=== PATIENT | female | born 1955 | race Caucasian/White ===

== ENCOUNTER 2017-06-13 20:34 | Emergency (ER) | payer SELFPAY ==
[~2017-06-13 20:34] MED LIST: BENZ1TAB PO; BUPR100CR PO; DEPA250T2 PO; RISP1TAB54 PO; Z.0.NO CURRENT MEDS
[2017-06-13 20:40] VITALS: BP 139/62; PULSE 95; RESP 16; TEMP 98.3; O2SAT 98
== END 2017-06-13 21:19 | disposition left against medical advice (07) ==
LOC: NED 20:34
DX: Z53.21 Procedure and treatment not carried out due to patient leaving prior to being seen by health care provider (principal)
CPT/HCPCS: 99281

== ENCOUNTER 2017-06-14 02:14 | Emergency (ER) | payer SELFPAY ==
[~2017-06-14] VITALS: Ht 167.6 cm; Wt 50.0 kg
== END 2017-06-14 08:17 | disposition left against medical advice (07) ==
LOC: NED 02:14
DX: R45.851 Suicidal ideations (principal); Z53.21 Procedure and treatment not carried out due to patient leaving prior to being seen by health care provider
CPT/HCPCS: 99281

== ENCOUNTER 2017-06-17 17:23 | Emergency (ER) | payer SELFPAY ==
[~2017-06-17] VITALS: Ht 167.6 cm; Wt 52.0 kg
[2017-06-17 17:34] VITALS: BP 115/56; PULSE 104; RESP 16; TEMP 98.6; O2SAT 99
[2017-06-17] MEDS ORDERED: ALBUAER3 INH (20:52)
--- NOTE | 2017-06-17 20:57 | PD ---
HPI Chief Complaint: Musculoskeletal Complaint Time Seen by Provider: 20:47 Travel History International Travel<30 days: No Contact w/Intl Traveler<30days: No Traveled to known affect area: No History of Present Illness HPI 61-year-old white female presents emergency department with complaints of an abrasion to the left foot which occurred earlier this week from a piece of wire scratched her skin when she was walking in flip-flops. The patient states that she has not had a tetanus shot in over 5 years. She has noticed some swelling in her forefoot and second toe. She denies any fever chills. No numbness, tingling or weakness. She denies any drainage. PFSH Past Medical History Bipolar Disorder: Yes Depression: Yes Cardiac Catheterization: Yes Cardiovascular Problems: Yes Coronary Artery Disease: Yes Diminished Hearing: Yes (bilateral listening device implant) Psychiatric: Yes Influenza Vaccination: Yes Menopausal: Yes : 5 Para: 4 Miscarriage: 1 Past Surgical History Cardiac Surgery: Yes Coronary Stent: Yes Gynecologic Surgery: Yes (HYSTERECTOMY) Hysterectomy: Yes Other Surgery: Yes (rectual surgery) Social History Alcohol Use: Yes (SOCIALY) Tobacco Use: Yes (1-2 PACKS DAILY OF CIGARETTES) Substance Use: No Allergies-Medications (Allergen,Severity, Reaction): Coded Allergies: citalopram (Unverified Allergy, Severe, 06/14/17) LEXAPRO paroxetine (Unverified Allergy, Severe, 06/14/17) sertraline (Unverified Allergy, Severe, 06/14/17) aspirin (Unverified Allergy, Mild, 06/14/17) Reported Meds & Prescriptions Reported Meds & Active Scripts Active Review of Systems Except as stated in HPI: all other systems reviewed are Neg Physical Exam Narrative GENERAL: This is a well-nourished, well-developed patient, in no apparent distress. SKIN: No rashes, ecchymoses or lesions. Warm and dry. HEAD: Atraumatic. Normocephalic. EYES: PERRL, EOMI, no discharge or injection. No scleral icterus. EARS: Clear NOSE: Nasal turbinates appear normal. THROAT: Mucosa pink and moist. Airway patent. NECK: Trachea midline. supple, moves head freely. LUNGS: Clear to auscultation. CV: Regular in rhythm. ABDOMEN: Soft nontender. EXT: No clubbing cyanosis or edema.. Examination of the left foot reveals only trace swelling to the dorsum. There is a superficial abrasion. There is no laceration or puncture. She has a crack in the skin on the base of the second toe from tinea pedis and walking in flip-flops. She has intact sensation with good distal pulses. I see no signs of any foreign body, nerve or vascular injury.. Data Data Last Documented VS Vital Signs Date Time Temp Pulse Resp B/P (MAP) Pulse Ox O2 Delivery O2 Flow Rate FiO2 06/17/17 17:34 98.6 104 16 115/56 (75) 99 Orders Orders Tetanus/Diphtheria Tox Adult (Tetanus/Di (06/17/17 21:00) Sulfamet-Trimeth Ds 800-160 Mg (Bactrim (06/17/17 21:00) MDM Medical Decision Making Medical Screen Exam Complete: Yes Emergency Medical Condition: Yes Medical Record Reviewed: Yes Differential Diagnosis MDM: High Differential diagnoses: Fracture, sprain, strain, dislocation, contusion, neurovascular injury, abrasion, infection Narrative Course Patient's foot reveals only a superficial abrasion to the dorsum and a crack in the skin from tinea pedis the second toe. The patient is concerned that she may be getting a wound infection. I have explained to her that this is not infected but the patient is insistent. I have agreed to give her a short course of Bactrim DS. She appears to be homeless on the streets and walks in flip-flops everywhere. Tetanus status updated. This is left foot abrasion, tinea pedis Diagnosis Primary Impression: Left foot abrasion Additional Impression: Tinea pedis Patient Instructions: General Instructions Additional Instructions: Rest. Elevation. Keep your feet clean and dry. Wash with soap, water and apply Lamisil AT twice daily. Bactrim DS. Recheck with a family practice physician or a clinic in 1 week. Return to the ER for emergencies. Med/Other Pt SpecificInfo: Prescription(s) given, Wound Care Disposition: 01 DISCHARGE HOME Condition: Stable Scooter Steward Jun 17, 2017 20:57
[2017-06-17] MEDS ORDERED: BACT800T5 PO (20:58)
[2017-06-17] MEDS ORDERED: SULFAMETHOXAZOLE-TRIMETHOPRIM DS 800-160 MG TAB PO ONE (21:00)
[2017-06-17] MEDS ORDERED: TETANUS/DIPHTHERIA TOXOID ADULT 0.5 ML VIAL IM ONE (21:00)
== END 2017-06-17 21:13 | disposition home or self-care (01) ==
LOC: NEPD 17:23
DX: S90.812A Abrasion, left foot, initial encounter (principal); B35.3 Tinea pedis; I25.10 Atherosclerotic heart disease of native coronary artery without angina pectoris; F31.9 Bipolar disorder, unspecified; F17.210 Nicotine dependence, cigarettes, uncomplicated; W22.8XXA Striking against or struck by other objects, initial encounter; Z23 Encounter for immunization; Z59.0 Homelessness; Z95.5 Presence of coronary angioplasty implant and graft; Z88.8 Allergy status to other drugs, medicaments and biological substances
CPT/HCPCS: 90471; 90714

== ENCOUNTER 2017-06-24 03:14 | Emergency (ER) | payer SELFPAY ==
[~2017-06-24] VITALS: Ht 167.6 cm; Wt 53.0 kg
[~2017-06-24 03:14] MED LIST changes: +ALBUAER3 INH; +BACT800T5 PO; -BENZ1TAB PO; -BUPR100CR PO; -DEPA250T2 PO; -RISP1TAB54 PO; -Z.0.NO CURRENT MEDS
[2017-06-24 03:17] VITALS: BP 120/53; PULSE 98; RESP 16; TEMP 97.6; O2SAT 98
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
[2017-06-24] MEDS ORDERED: diphenhydrAMINE HCL 50 MG/ML VIAL IM ONE (04:00)
== END 2017-06-24 05:30 | disposition home or self-care (01) ==
LOC: NEPD 03:14
DX: L29.9 Pruritus, unspecified (principal); F31.9 Bipolar disorder, unspecified; I25.811 Atherosclerosis of native coronary artery of transplanted heart without angina pectoris; J45.909 Unspecified asthma, uncomplicated; F17.210 Nicotine dependence, cigarettes, uncomplicated; Z95.5 Presence of coronary angioplasty implant and graft; Z59.0 Homelessness
CPT/HCPCS: 96372; 99283; J1200

== ENCOUNTER 2017-06-30 13:07 | Emergency (ER) | payer SELFPAY ==
[~2017-06-30] VITALS: Ht 167.6 cm; Wt 53.0 kg
[2017-06-30 13:15] VITALS: BP 162/69; PULSE 87; RESP 17; TEMP 98.3; O2SAT 98
[2017-06-30] MEDS ORDERED: diphenhydrAMINE HCL 25 MG CAP PO ONE (15:30)
--- NOTE | 2017-06-30 15:33 | PD ---
HPI Chief Complaint: Skin Problem Time Seen by Provider: 15:07 Travel History International Travel<30 days: No Contact w/Intl Traveler<30days: No Traveled to known affect area: No History of Present Illness HPI 61-year-old woman presents emerged from complaining of feeling itchy all over. States she drank a drink that tasted funny and then she has developed itching. She is worried because she had an anaphylactic reaction when she was 17. She is very bizarre. She came by EMS. No hives. No vomiting. No shortness of breath. No other complaints. PFSH Past Medical History Bipolar Disorder: Yes Depression: Yes Cardiac Catheterization: Yes Cardiovascular Problems: Yes (heart transplant 2017) Coronary Artery Disease: Yes Diminished Hearing: Yes (bilateral listening device implant) Psychiatric: Yes Respiratory: Yes (asthma) Menopausal: Yes : 5 Para: 4 Miscarriage: 1 Past Surgical History Cardiac Surgery: Yes Coronary Stent: Yes Gynecologic Surgery: Yes (HYSTERECTOMY) Hysterectomy: Yes Other Surgery: Yes (rectual surgery) Social History Alcohol Use: Yes (SOCIALY) Tobacco Use: Yes (1-2 PACKS DAILY OF CIGARETTES) Substance Use: No Allergies-Medications (Allergen,Severity, Reaction): Coded Allergies: citalopram (Unverified Allergy, Severe, 06/14/17) LEXAPRO paroxetine (Unverified Allergy, Severe, 06/14/17) sertraline (Unverified Allergy, Severe, 06/14/17) aspirin (Unverified Allergy, Mild, 06/14/17) Reported Meds & Prescriptions Reported Meds & Active Scripts Active Reported Proair Hfa 8.5 GM Inh (Albuterol Sulfate) 90 Mcg/Act Aer 2 Puff INH Q4-6H PRN 108 mcg/actuation Review of Systems Except as stated in HPI: all other systems reviewed are Neg Physical Exam Narrative GENERAL: Well-appearing 61-year-old woman, no acute distress per SKIN: Warm and dry. Also secondary excoriations. No hives or other primary skin lesions CARDIOVASCULAR: Warm and well perfused. RESPIRATORY: Normal rate and effort. MUSCULOSKELETAL: Decreased muscle bulk. No deformities. NEUROLOGICAL: Awake and alert. No gross deficits. Data Data Last Documented VS Vital Signs Date Time Temp Pulse Resp B/P (MAP) Pulse Ox O2 Delivery O2 Flow Rate FiO2 06/30/17 13:15 98.3 87 17 162/69 (100) 98 Orders Orders Diphenhydramine (Benadryl) (06/30/17 15:30) [facility] Medical Decision Making Medical Screen Exam Complete: Yes Emergency Medical Condition: Yes Differential Diagnosis Allergic reaction, psychosomatic pruritus, other Narrative Course Medical decision making appears a 61-year-old woman, presents to the ED with itching. She looks well. She is a lot of scratches but no hives or other evidence allergic reaction. Lungs are clear. Recommend supportive treatment. Diagnosis Primary Impression: Itching Additional Instructions: Drink plenty of fluids stay well-hydrated. Use [id number] Benadryl as needed for itching. Disposition: 01 DISCHARGE HOME Condition: Stable Rakesh Cunningham MD Jun 30, 2017 15:33
== END 2017-06-30 15:44 | disposition home or self-care (01) ==
LOC: NEPD 13:07
DX: L29.9 Pruritus, unspecified (principal); F31.9 Bipolar disorder, unspecified; J45.909 Unspecified asthma, uncomplicated; I25.811 Atherosclerosis of native coronary artery of transplanted heart without angina pectoris; F17.210 Nicotine dependence, cigarettes, uncomplicated
CPT/HCPCS: 99282

== ENCOUNTER 2017-07-04 20:52 | Emergency (ER) | payer OTHER ==
[~2017-07-04] VITALS: Ht 165.1 cm; Wt 60.0 kg
[~2017-07-04 20:52] MED LIST changes: -BACT800T5 PO
[2017-07-04 21:00] VITALS: BP 139/68; PULSE 87; RESP 12; TEMP 98.6; O2SAT 98
--- NOTE | 2017-07-04 21:18 | PD ---
HPI Chief Complaint: Suicide Ideation/Attempt Time Seen by Provider: 21:06 Travel History International Travel<30 days: No Contact w/Intl Traveler<30days: No Traveled to known affect area: No History of Present Illness HPI 61-year-old female that presents to the ED for evaluation of suicidal ideation. Patient apparently told police that she wanted to kill herself by going into traffic. She was brought here for evaluation of this. Patient has been here at least 3 times in the past week. She has been here for multiple complaints. She does have a history of adjustment disorder and appears to be also homeless. Is hard to get a history from her as she is very bizarre on her speech. She speaks really fast and does not like to repeat herself. She gets very upset whenever a question gets asked multiple times. She has a history of substance abuse. She denies any homicidal ideation. She states having a history of depression and she states that she is to be on medications for her but she is not on them. She states that she was also told she might have diabetes and is having issues with her "Medicaid ". She denies any other medical issues at this time. She states that she has a history of hypoglycemia as well as asthma and anemia. Multiple allergies to different medications. Has been here before for psychiatric evaluation. Again history is limited as patient does appear to be somewhat bizarre in behavior at this time. PFSH Past Medical History Bipolar Disorder: Yes Depression: Yes Cardiac Catheterization: Yes Cardiovascular Problems: Yes (heart transplant 2016) Coronary Artery Disease: Yes Diminished Hearing: Yes (bilateral listening device implant) Psychiatric: Yes Respiratory: Yes (ASTHMA) ?: Not Menopausal: Yes : 5 Para: 4 Miscarriage: 1 Past Surgical History Cardiac Surgery: Yes Coronary Stent: Yes Gynecologic Surgery: Yes (HYSTERECTOMY) Hysterectomy: Yes Other Surgery: Yes (rectual surgery) Social History Alcohol Use: Yes (SOCIALY) Tobacco Use: Yes (1-2 PACKS DAILY OF CIGARETTES) Substance Use: No Allergies-Medications (Allergen,Severity, Reaction): Coded Allergies: citalopram (Unverified Allergy, Severe, 06/14/17) LEXAPRO paroxetine (Unverified Allergy, Severe, 06/14/17) sertraline (Unverified Allergy, Severe, 06/14/17) aspirin (Unverified Allergy, Mild, 06/14/17) Reported Meds & Prescriptions Reported Meds & Active Scripts Active Reported Proair Hfa 8.5 GM Inh (Albuterol Sulfate) 90 Mcg/Act Aer 2 Puff INH Q4-6H PRN 108 mcg/actuation Review of Systems ROS Limitations: Poor Historian Except as stated in HPI: all other systems reviewed are Neg Physical Exam Exam Limitations: Poor Historian Narrative GENERAL: SKIN: Warm and dry. HEAD: Atraumatic. Normocephalic. EYES: Pupils equal and round. No scleral icterus. No injection or drainage. ENT: No nasal bleeding or discharge. Mucous membranes pink and moist. Tongue is midline. No uvula deviation. NECK: Trachea midline. No JVD. CARDIOVASCULAR: Regular rate and rhythm. No murmurs, S3, S4. RESPIRATORY: No accessory muscle use. Clear to auscultation. Breath sounds equal bilaterally. GASTROINTESTINAL: Abdomen soft, non-tender, nondistended. Hepatic and splenic margins not palpable. MUSCULOSKELETAL: Extremities without clubbing, cyanosis, or edema. No obvious deformities. Full range of motion of the upper and lower extremities bilaterally. 2+ pulses bilaterally. NEUROLOGICAL: Awake and alert. No obvious cranial nerve deficits. Motor grossly within normal limits. Five out of 5 muscle strength in the arms and legs. Normal speech. PSYCHIATRIC: Appropriate mood and affect; insight and judgment questionable Data Data Last Documented VS Vital Signs Date Time Temp Pulse Resp B/P (MAP) Pulse Ox O2 Delivery O2 Flow Rate FiO2 07/04/17 21:00 98.6 87 12 139/68 (91) 98 Orders Orders Complete Blood Count With Diff (07/04/17 21:07) Comprehensive Metabolic Panel (07/04/17 21:07) Thyroid Stimulating Hormone (07/04/17 21:07) Psych Screen (07/04/17 21:07) Drug Screen, Random Urine (07/04/17 21:07) Alcohol (Ethanol) (07/04/17 21:07) Salicylates (Aspirin) (07/04/17 21:07) Tylenol (Acetaminophen) (07/04/17 21:07) MDM Medical Decision Making Medical Screen Exam Complete: Yes Emergency Medical Condition: Yes Medical Record Reviewed: Yes Differential Diagnosis Depression versus suicidal ideation versus anxiety versus adjustment disorder versus mood disorder versus bipolar disorder versus schizophrenia versus paranoid disorder versus psychosis versus substance abuse versus alcohol abuse versus alcohol induced psychosis versus homicidality addition versus cutting versus personality disorder Narrative Course 61-year-old female that presents to the ED for evaluation of psych. Patient was properly examined and was found to have signs and symptoms consistent with psychiatric illness been a significant medical distress. Labs were drawn. Patient was medically clear. Okay to be seen by psych. Mental health screening was discussed with the patient. Diagnosis Primary Impression: Medical clearance for psychiatric admission Nba Jade Jul 04, 2017 21:18
[2017-07-04 21:34] LABS: AUTOMATED NEUTROPHIL # 5.6 TH/MM3 (1.8-7.7); BASOPHIL # 0.1 TH/MM3 (0-0.2); BASOPHIL % 0.7 % (0.0-2.0); EOSINOPHIL # 0.3 TH/MM3 (0-0.4); EOSINOPHIL % 3.9 % (0.0-4.0); HEMATOCRIT 42.6 % (35.0-46.0); HEMOGLOBIN 14.6 GM/DL (11.6-15.3); LYMPH % 25.3 % (9.0-44.0); LYMPHOCYTE # 2.2 TH/MM3 (1.0-4.8); MEAN CELL VOLUME 94.6 FL (80.0-100.0); MEAN CORPUSCULAR HEMOGLOBIN 32.5 PG (27.0-34.0); MEAN CORPUSCULAR HGB CONC 34.4 % (32.0-36.0); MEAN PLATELET VOLUME 7.6 FL (7.0-11.0); MONO % 6.3 % (0.0-8.0); MONOCYTE # 0.6 TH/MM3 (0-0.9); NEUT % 63.8 % (16.0-70.0); PLATELET COUNT 298 TH/MM3 (150-450); RED CELL DISTRIBUTION WIDTH 12.9 % (11.6-17.2); WHITE BLOOD COUNT 8.8 TH/MM3 (4.0-11.0)
[2017-07-04 22:08] LABS: ALT (GPT) 20 U/L (10-53)
[2017-07-04 22:16] LABS: ALBUMIN 3.9 GM/DL (3.4-5.0); AST (GOT) 23 U/L (15-37); BICARBONATE 25.9 MEQ/L (21.0-32.0); BLOOD UREA NITROGEN 17 MG/DL (7-18); CALCIUM 9.3 MG/DL (8.5-10.1); CHLORIDE 105 MEQ/L (98-107); CREATININE 0.81 MG/DL (0.50-1.00); GLOMERULAR FILTRATION RATE 72 ML/MIN (>89); GLUCOSE,RANDOM 109 MG/DL (74-106); SODIUM (NA) 141 MEQ/L (136-145)
[2017-07-04 22:18] LABS: ALKALINE PHOSPHATASE 153 U/L (45-117); TOTAL BILIRUBIN ADULT 0.4 MG/DL (0.2-1.0); TOTAL PROTEIN 7.6 GM/DL (6.4-8.2)
[2017-07-04 22:23] LABS: ACETAMINOPHEN LESS THAN 2.0 MCG/ML (10.0-30.0)
[2017-07-05 05:33] VITALS: BP 107/58; PULSE 84; RESP 16; TEMP 98.7; O2SAT 95
--- NOTE | 2017-07-05 13:18 | PD.PSY.CON ---
Provisional Diagnosis Admission Date Date of consultation 07/05/2017 [place] I. 1. Adjustment disorder with depressed mood 2. History of schizoaffective disorder [place] II. Deferred History of Present Illness Service Psychiatry Consult Requested By Emergency department Reason for Consult Schwarz act Primary Care Physician No Primary Care Physician HPI Ms. Toribio is a 61-year-old female with a chart history of schizoaffective disorder who presents under a Schwarz act by law enforcement alleging that she told officers that she was experiencing suicidal thoughts. Reviewing the electronic medical record, I note that the patient was admitted here most recently under Dr. Connolly in 2011. Patient seen and examined. Chart reviewed. Case discussed with nursing staff. Per nursing staff, there has been no evidence of any suicidality or homicidality while the patient has been under observation in the [facility] pod. On my examination today, the patient presents as mildly disheveled but she is maintaining basic hygiene. She denies any suicidal or homicidal ideation, intent or plan at this time. She does describe her mood as "a little sad" but I can elicit no depressive or hypomanic/manic symptoms. She denies any audiovisual hallucinations. I can elicit no paranoia, no ideas of reference, no other delusional material. There is no evidence of impairment in reality construction. Remainder of the psychiatric ROS is negative. The patient has no acute physical complaints. Past psychiatric history: The patient has a history of schizoaffective disorder. She has previously followed at [facility] but does not appear to be presently connected with outpatient psychiatric services. She was psychiatrically admitted here in 2011 as noted above. She does report a history of suicide attempts by hanging in the past. Family history: The patient denies any family history of serious mental illness or suicide. Chemical dependency history: The patient reports occasional alcohol use. No other substance use reported. Social history: Patient is presently homeless. She has some college education. No reported access to guns or firearms. Review of Systems Except as stated in HPI: all other systems reviewed are Neg Past Family Social History Coded Allergies: citalopram (Unverified Allergy, Severe, 06/14/17) LEXAPRO paroxetine (Unverified Allergy, Severe, 06/14/17) sertraline (Unverified Allergy, Severe, 06/14/17) aspirin (Unverified Allergy, Mild, 06/14/17) Past Medical History See electronic medical record Reported Medications Albuterol 8.5 GM Inh (Proair Hfa 8.5 GM Inh) 90 Mcg/Act Aer, 2 PUFF INH Q4-6H Y for SHORTNESS OF BREATH, #1 INHALER 0 Refills 108 mcg/actuation 06/17/17 Discontinued Scripts Sulfamethoxazole-Trimethoprim (Bactrim DS) 800-160 Mg Tab, 1 TAB PO BID for Infection, #14 TAB 0 Refills Prov:Miguel Valdez MD 06/17/17 Patient's Strengths (min. 2) Attending to basic needs. Verbally fluent. Physical Exam Physical exam completed by ED provider. On my examination today, the patient appears to be in no acute physical distress. No motor abnormalities noted. Labs and vital signs reviewed: Vital Signs Vital Signs Date Time Temp Pulse Resp B/P (MAP) Pulse Ox O2 Delivery O2 Flow Rate FiO2 07/05/17 05:33 98.7 84 16 107/58 (74) 95 Lab Results Test 07/04/17 21:22 07/05/17 02:30 White Blood Count 8.8 TH/MM3 Red Blood Count 4.50 MIL/MM3 Hemoglobin 14.6 GM/DL Hematocrit 42.6 % Mean Corpuscular Volume 94.6 FL Mean Corpuscular Hemoglobin 32.5 PG Mean Corpuscular Hemoglobin Concent 34.4 % Red Cell Distribution Width 12.9 % Platelet Count 298 TH/MM3 Mean Platelet Volume 7.6 FL Neutrophils (%) (Auto) 63.8 % Lymphocytes (%) (Auto) 25.3 % Monocytes (%) (Auto) 6.3 % Eosinophils (%) (Auto) 3.9 % Basophils (%) (Auto) 0.7 % Neutrophils # (Auto) 5.6 TH/MM3 Lymphocytes # (Auto) 2.2 TH/MM3 Monocytes # (Auto) 0.6 TH/MM3 Eosinophils # (Auto) 0.3 TH/MM3 Basophils # (Auto) 0.1 TH/MM3 CBC Comment DIFF FINAL Differential Comment Blood Urea Nitrogen 17 MG/DL Creatinine 0.81 MG/DL Random Glucose 109 MG/DL Total Protein 7.6 GM/DL Albumin 3.9 GM/DL Calcium Level 9.3 MG/DL Alkaline Phosphatase 153 U/L Aspartate Amino Transf (AST/SGOT) 23 U/L Alanine Aminotransferase (ALT/SGPT) 20 U/L Total Bilirubin 0.4 MG/DL Sodium Level 141 MEQ/L Potassium Level 3.9 MEQ/L Chloride Level 105 MEQ/L Carbon Dioxide Level 25.9 MEQ/L Anion Gap 10 MEQ/L Estimat Glomerular Filtration Rate 72 ML/MIN Thyroid Stimulating Hormone 3rd Gen 0.382 uIU/ML Salicylates Level 2.8 MG/DL Acetaminophen Level LESS THAN 2.0 MCG/ML Ethyl Alcohol Level LESS THAN 3 MG/DL Urine Opiates Screen NEG Urine Barbiturates Screen NEG Urine Amphetamines Screen NEG Urine Benzodiazepines Screen NEG Urine Cocaine Screen NEG Urine Cannabinoids Screen NEG Mental Status Examination Appearance: Other (Somewhat disheveled but is maintaining basic hygiene.) Consciousness: Alert Orientation: Person, Place (At least) Motor Activity: Normal gait Speech: Speech impediment Language: Adequate Fund of Knowledge: Adequate Attention and Concentration: Other (Fair) Memory: Unremarkable Mood: Other ("A little sad") Affect: Appropriate Thought Process & Associations: Circumstantial Thought Content: Appropriate Hallucination Type: None Delusion Type: None Suicidal Ideation: No Suicidal Plan: No Suicidal Intention: No Homicidal Ideation: No Homicidal Plan: No Homicidal Intention: No Mental Status Exam Remarks Insight and judgment are perhaps fair Assessment & Plan Problem List: (1) Adjustment disorder with depressed mood ICD Codes: F43.21 - Adjustment disorder with depressed mood (2) History of schizoaffective disorder ICD Codes: Z86.59 - Personal history of other mental and behavioral disorders Assessment & Plan 61-year-old female with psychiatric history as detailed above who presents under Schwarz act I law enforcement. On my examination today, the patient admits to feeling a little sad but has no symptoms of severe depressive diathesis. She denies any suicidal or homicidal ideation at this time. Although she is somewhat disheveled, she does appear to be attending to basic needs, and I suspect she is doing the best she can in her current homeless situation. There is no evidence of severely unstable mental illness has defined under the Schwarz act. There is no evidence of severe self-care deficit. Synthesizing this information, I judge clerk that the patient does not presently meet the Schwarz act criteria. I have lifted the Schwarz act. The patient will be referred for outpatient psychiatric services. Case d/w RN. Patient to return to psychiatric emergency room for any concerning psychiatric symptoms as part of a general safety plan. Patient is psychiatrically clear for discharge from the ED. Thank you very much for this consultation. Carl Ruiz MD Jul 05, 2017 13:18
--- NOTE | 2017-07-05 14:13 | PD ---
Physical Exam Time Seen by Provider: 14:[address] Johnson has evaluated the patient, lifted Schwarz act and cleared the patient for discharge. Data Data Last Documented VS Vital Signs Date Time Temp Pulse Resp B/P (MAP) Pulse Ox O2 Delivery O2 Flow Rate FiO2 07/05/17 05:33 98.7 84 16 107/58 (74) 95 Orders Orders Complete Blood Count With Diff (07/04/17 21:07) Comprehensive Metabolic Panel (07/04/17 21:07) Thyroid Stimulating Hormone (07/04/17 21:07) Psych Screen (07/04/17 21:07) Drug Screen, Random Urine (07/04/17 21:07) Alcohol (Ethanol) (07/04/17 21:07) Salicylates (Aspirin) (07/04/17 21:07) Tylenol (Acetaminophen) (07/04/17 21:07) Diet Regular Basic (07/05/17 Breakfast) Diet Regular Basic (07/05/17 Lunch) Labs Laboratory Tests Test 07/04/17 21:22 07/05/17 02:30 White Blood Count 8.8 TH/MM3 Red Blood Count 4.50 MIL/MM3 Hemoglobin 14.6 GM/DL Hematocrit 42.6 % Mean Corpuscular Volume 94.6 FL Mean Corpuscular Hemoglobin 32.5 PG Mean Corpuscular Hemoglobin Concent 34.4 % Red Cell Distribution Width 12.9 % Platelet Count 298 TH/MM3 Mean Platelet Volume 7.6 FL Neutrophils (%) (Auto) 63.8 % Lymphocytes (%) (Auto) 25.3 % Monocytes (%) (Auto) 6.3 % Eosinophils (%) (Auto) 3.9 % Basophils (%) (Auto) 0.7 % Neutrophils # (Auto) 5.6 TH/MM3 Lymphocytes # (Auto) 2.2 TH/MM3 Monocytes # (Auto) 0.6 TH/MM3 Eosinophils # (Auto) 0.3 TH/MM3 Basophils # (Auto) 0.1 TH/MM3 CBC Comment DIFF FINAL Differential Comment Blood Urea Nitrogen 17 MG/DL Creatinine 0.81 MG/DL Random Glucose 109 MG/DL Total Protein 7.6 GM/DL Albumin 3.9 GM/DL Calcium Level 9.3 MG/DL Alkaline Phosphatase 153 U/L Aspartate Amino Transf (AST/SGOT) 23 U/L Alanine Aminotransferase (ALT/SGPT) 20 U/L Total Bilirubin 0.4 MG/DL Sodium Level 141 MEQ/L Potassium Level 3.9 MEQ/L Chloride Level 105 MEQ/L Carbon Dioxide Level 25.9 MEQ/L Anion Gap 10 MEQ/L Estimat Glomerular Filtration Rate 72 ML/MIN Thyroid Stimulating Hormone 3rd Gen 0.382 uIU/ML Salicylates Level 2.8 MG/DL Acetaminophen Level LESS THAN 2.0 MCG/ML Ethyl Alcohol Level LESS THAN 3 MG/DL Urine Opiates Screen NEG Urine Barbiturates Screen NEG Urine Amphetamines Screen NEG Urine Benzodiazepines Screen NEG Urine Cocaine Screen NEG Urine Cannabinoids Screen NEG MDM Supervised Visit with KOBE: No Narrative Course Dr. Johnson has evaluated the patient, lifted Schwarz loni and cleared the patient for discharge. Patient contracts safety. Denies suicidal or homicidal ideations. Patient will be provided community resource packet to [facility] for follow-up. Has friends and family for support. Patient was medically cleared by alternate provider prior to psych screening. Patient has been evaluated by psychiatry and and is now cleared for discharge. Diagnosis Primary Impression: Adjustment disorder with depressed mood Referrals: [facility] (Out patient) [facility] Primary Care Physician Psychiatrist [facility] Patient Instructions: General Instructions, Mood Disorders (ED) Additional Instruction: Contract safety to your self and others Follow-up with psychiatry Follow-up with primary care provider Follow-up with Lionel Garibay Return to the emergency department immediately with worsening of symptoms Med/Other Pt SpecificInfo: No Change to Meds, No Meds Exist/No RX given Disposition: 01 DISCHARGE HOME Condition: Stable Niya Doyle COVER SEAMER Jul 05, 2017 14:13
== END 2017-07-05 14:33 | disposition home or self-care (01) ==
LOC: NEPJ 20:52
DX: F43.21 Adjustment disorder with depressed mood (principal); F25.9 Schizoaffective disorder, unspecified; R45.851 Suicidal ideations; F31.9 Bipolar disorder, unspecified; I25.811 Atherosclerosis of native coronary artery of transplanted heart without angina pectoris; J45.909 Unspecified asthma, uncomplicated; F17.210 Nicotine dependence, cigarettes, uncomplicated; Z59.0 Homelessness; Z95.5 Presence of coronary angioplasty implant and graft
CPT/HCPCS: 80053; 80307; 84443; 85025; 99284

== ENCOUNTER 2017-07-09 23:39 | Inpatient (IN) | payer OTHER ==
[~2017-07-09] VITALS: Ht 167.6 cm; Wt 50.7 kg
[2017-07-09 23:42] VITALS: BP 139/56; PULSE 93; RESP 18; TEMP 97.4; O2SAT 97
--- NOTE | 2017-07-10 00:04 | PD ---
HPI Chief Complaint: Suicide Ideation/Attempt Time Seen by Provider: 23:49 Travel History International Travel<30 days: No Contact w/Intl Traveler<30days: No Traveled to known affect area: No History of Present Illness HPI 61-year-old female complaining of feeling suicidal. Patient has history of schizoaffective disorder not on any medication recently. Patient states that she was suicidal thoughts today. Patient denies any other medical problem. Patient denies any alcohol or drug abuse. Patient denies any headache. Patient denies any chest pain or shortness of breath. Patient denies abdominal pain. Patient denies any dysuria or frequency. Patient denies any fever chills. PFSH Past Medical History Bipolar Disorder: Yes Depression: Yes Cardiac Catheterization: Yes Cardiovascular Problems: Yes (heart transplant 2016) Coronary Artery Disease: Yes Diminished Hearing: Yes (bilateral listening device implant) Psychiatric: Yes Respiratory: Yes (ASTHMA) Tetanus Vaccination: < 5 Years Influenza Vaccination: Yes ?: Not Menopausal: Yes : 5 Para: 4 Miscarriage: 1 Past Surgical History Cardiac Surgery: Yes Coronary Stent: Yes Gynecologic Surgery: Yes (HYSTERECTOMY) Hysterectomy: Yes Other Surgery: Yes (rectual surgery) Social History Alcohol Use: Yes (SOCIALY) Tobacco Use: Yes (1-2 PACKS DAILY OF CIGARETTES) Substance Use: No Allergies-Medications (Allergen,Severity, Reaction): Coded Allergies: citalopram (Unverified Allergy, Severe, 07/09/17) LEXAPRO paroxetine (Unverified Allergy, Severe, 07/09/17) sertraline (Unverified Allergy, Severe, 07/09/17) aspirin (Unverified Allergy, Mild, 07/09/17) Reported Meds & Prescriptions Reported Meds & Active Scripts Active Reported Proair Hfa 8.5 GM Inh (Albuterol Sulfate) 90 Mcg/Act Aer 2 Puff INH Q4-6H PRN 108 mcg/actuation Review of Systems General / Constitutional: No: Fever Eyes: No: Visual changes HENT: No: Headaches Cardiovascular: No: Chest Pain or Discomfort Respiratory: No: Shortness of Breath Gastrointestinal: No: Abdominal Pain Genitourinary: No: Dysuria Musculoskeletal: No: Pain Skin: No Rash Neurologic: No: Weakness Psychiatric: Positive: Suicidal Ideations, No: Depression Endocrine: No: Polydipsia Hematologic/Lymphatic: No: Easy Bruising Physical Exam Narrative GENERAL: Well-nourished, well-developed patient. SKIN: Focused skin assessment warm/dry. HEAD: Normocephalic. EYES: No scleral icterus. No injection or drainage. NECK: Supple, trachea midline. No JVD or lymphadenopathy. CARDIOVASCULAR: Regular rate and rhythm without murmurs, gallops, or rubs. RESPIRATORY: Breath sounds equal bilaterally. No accessory muscle use. GASTROINTESTINAL: Abdomen soft, non-tender, nondistended. MUSCULOSKELETAL: No cyanosis, or edema. BACK: Nontender without obvious deformity. No CVA tenderness. Neurologic exam: Patient is awake and alert oriented 3. Patient moves all extremity well. No obvious focal neurologic deficit. Data Data Last Documented VS Vital Signs Date Time Temp Pulse Resp B/P (MAP) Pulse Ox O2 Delivery O2 Flow Rate FiO2 07/09/17 23:42 97.4 93 18 139/56 (83) 97 Orders Orders Complete Blood Count With Diff (07/09/17 23:57) Comprehensive Metabolic Panel (07/09/17 23:57) Thyroid Stimulating Hormone (07/09/17 23:57) Urinalysis - C+S If Indicated (07/09/17 23:57) Psych Screen (07/09/17 23:57) Drug Screen, Random Urine (07/09/17 23:57) MDM Medical Decision Making Medical Screen Exam Complete: Yes Emergency Medical Condition: Yes Differential Diagnosis Differential diagnosis including adjustment disorder with depressed mood, schizoaffective disorder. Narrative Course 61-year-old female states that she experiencing suicidal thoughts. Patient has history of schizoaffective disorder. 12:47 AM. Patient refused blood test. Patient had blood test done recently. Patient is medically cleared for psychiatric evaluation. Mao Lee MD Jul 10, 2017 00:03
[2017-07-10 01:37] LABS: BILIRUBIN, URINE NEG (NEG); BLOOD, URINE NEG (NEG); GLUCOSE,URINE NEG (NEG); KETONE, URINE NEG (NEG); MUCUS URINE FEW /lpf (OCC); NITRITE,URINE NEG (NEG); SQUAMOUS EPITHELIAL CELL URINE 4 /hpf (0-5); URINE COLOR LIGHT-YELLOW (YELLW/STRAW); URINE LEUKOCYTE ESTERASE NEG (NEG)
[2017-07-10 02:13] VITALS: BP 128/60; PULSE 82; RESP 18; TEMP 97.9; O2SAT 96
[2017-07-10 06:49] VITALS: BP 106/55; PULSE 79; RESP 18; TEMP 98.7; O2SAT 96
[2017-07-10] MEDS ORDERED: BENZTROPINE MESYLATE 2 MG/2 ML VIAL IM PRN (07:45)
[2017-07-10] MEDS ORDERED: ACETAMINOPHEN 325 MG TAB PO PRN (07:45)
[2017-07-10] MEDS ORDERED: diphenhydrAMINE HCL 50 MG CAP PO PRN (07:45)
[2017-07-10] MEDS ORDERED: BENZTROPINE MESYLATE 1 MG TAB PO PRN (07:45)
[2017-07-10] MEDS ORDERED: LORazepam 2 MG/ML VIAL IM PRN (07:45)
[2017-07-10] MEDS ORDERED: ALUMINUM/MAGNESIUM/SIMETH 30 ML CUP PO PRN (07:45)
[2017-07-10] MEDS ORDERED: NICOTINE 21 MG/24 HR PATCH T-DERMAL PRN (07:45)
[2017-07-10] MEDS ORDERED: MAGNESIUM HYDROXIDE SUSP 30 ML CUP PO PRN (07:45)
[2017-07-10] MEDS ORDERED: LORazepam 1 MG TAB PO PRN (07:45)
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
[2017-07-10 08:30] VITALS: BP 126/60; PULSE 77; RESP 16; TEMP 97.2; O2SAT 94
[2017-07-10] MEDS: risperiDONE 1 MG TAB PO SCH ×2 (09:11→20:32)
[2017-07-10 18:00] VITALS: BP 134/62; PULSE 68; RESP 15; TEMP 98.6; O2SAT 97
[2017-07-11 05:24] VITALS: BP 108/54; PULSE 83; RESP 17; TEMP 98.4; O2SAT 95
[2017-07-11 05:25] VITALS: BP 108/54; PULSE 83; RESP 17; TEMP 98.4; O2SAT 95
[2017-07-11] MEDS: risperiDONE 1 MG TAB PO SCH ×2 (08:18→20:47)
--- NOTE | 2017-07-11 09:12 | PD.TTN ---
Patient Problems 1. Discharge planning 2. Medication compliance 3. Knowledge deficit 4. Lack of coping skills Progress Toward Goals Provider Present: Dr. Catrachito Ruiz Provider Input: 07/11/17 - Dr. Ruiz reported this is a new patient,with previous admissions, homeless. Patient has been started on Risperdal, which patient reports has been helpful in the past. Psychiatric Counselors Present: CONNER Espinoza Psych Therapist Input: 07/11/17 - This is a new patient and counselor will meet with her today to assess her mental status and needs. Group Spec/RT/OT/LI Present: LOUISA Chew Group Spec/RT/OT/LI Input: 07/11/17 - new patient Discharge Plan SMA 07/11/17 - Patient arrived homeless. Discharge planning in process. Documentation Scribe: CONNER Espinoza Date Resolved: Jul 11, 2017 Apryl Pennington Jul 11, 2017 09:12
--- NOTE | 2017-07-11 13:19 | HHI.PYPN ---
Subjective Chief Complaint: psychosis Remarks Patient seen and examined with nurse. Chart reviewed. Case discussed with nursing staff who reports that the patient is now requesting discharge from the inpatient psychiatric unit. Patient is noted to be medication compliant but seclusive to room. On my examination today, the patient says "I had like to go home." She remained somewhat rambling in speech and disorganized in thought process. She denies any suicidal or homicidal ideation. She denies any audiovisual hallucinations. Art of the reason she is so eager to leave apparently is that she wants to go smoke. I have tried to accommodate the patient regarding nicotine replacement products, but the patient is declining any such replacement. She remains somewhat disheveled. She denies side effects from medications. Declines titration of Risperdal. No acute physical complaints. Patient intends to complete ROR. Review of Systems ROS Limitations: Psychotic, Poor Historian Except as stated in HPI: all other systems reviewed are Neg Mental Status Examination Appearance: Disheveled (patient reportedly did shower today) Consciousness: Alert Orientation: Person, Place (at least) Motor Activity: Other (No abnormal motor movements noted) Speech: Unremarkable Language: Other (Rambling) Fund of Knowledge: Inadequate Attention and Concentration: Easily Distracted Memory: Impaired (Psychosis interferes) Mood: Other (Calm) Affect: Blunt Thought Process & Associations: Tangential (At times disorganized) Thought Content: Hallucinations, Delusional Hallucination Type: Other (Appears internally stimulated) Delusion Type: Paranoid Suicidal Ideation: No Suicidal Plan: No Suicidal Intention: No Homicidal Ideation: No Homicidal Plan: No Homicidal Intention: No Insight: Fair Judgment: Impulsive Results Labs Labs reviewed. Laboratories that I ordered yesterday were canceled by the lab for unclear reason. I have reordered the CMP with instructions not to cancel this laboratory. Vitals/IOs Vital Signs Date Time Temp Pulse Resp B/P (MAP) Pulse Ox O2 Delivery O2 Flow Rate FiO2 07/11/17 05:25 98.4 83 17 108/54 (72) 95 07/10/17 06:49 Room Air Intake and Output 07/11/17 07/11/17 07/12/17 08:00 16:00 00:00 Intake Total 360 ml Balance 360 ml Assessment & Plan Problem List: (1) Schizoaffective disorder ICD Codes: F25.9 - Schizoaffective disorder, unspecified Assessment & Plan Patient remains decompensated with respect to her psychotic illness, and I cannot recommend her discharge at this time. Continue Risperdal as ordered. Patient declines titration of this agent, although I have recommended titration to target psychotic symptoms. Continue to monitor on the inpatient unit. Continue other medications and care as ordered. Justification for Cont. Inpt. Impairment in reality construction. Risk for decompensation in less restrictive environment. Discharge Planning Pending psychiatric stabilization Request HC Surrog/Guard Advoc?: No Problem Qualifiers (1) Schizoaffective disorder: Qualified Codes: F25.0 - Schizoaffective disorder, bipolar type Carl Ruiz MD Jul 11, 2017 13:19
[2017-07-11] MEDS ORDERED: ALBUTEROL SULFATE 90 MCG/ACT HFA 8 GM INHALER INH PRN (14:00)
[2017-07-11 17:51] VITALS: BP 122/61; PULSE 81; RESP 16; TEMP 97.7; O2SAT 96
[2017-07-12 05:31] VITALS: BP 104/56; PULSE 93; RESP 16; TEMP 98.2; O2SAT 98
[2017-07-12] MEDS: risperiDONE 1 MG TAB PO SCH (08:49)
[2017-07-12 09:50] LABS: ALBUMIN 3.8 GM/DL (3.4-5.0); AST (GOT) 13 U/L (15-37); BICARBONATE 28.4 MEQ/L (21.0-32.0); BLOOD UREA NITROGEN 20 MG/DL (7-18); CALCIUM 9.5 MG/DL (8.5-10.1); CHLORIDE 102 MEQ/L (98-107); CREATININE 0.88 MG/DL (0.50-1.00); GLOMERULAR FILTRATION RATE 66 ML/MIN (>89); GLUCOSE,RANDOM 133 MG/DL (74-106); SODIUM (NA) 140 MEQ/L (136-145)
[2017-07-12 09:55] LABS: ALKALINE PHOSPHATASE 124 U/L (45-117); ALT (GPT) 17 U/L (10-53); TOTAL BILIRUBIN ADULT 0.3 MG/DL (0.2-1.0); TOTAL PROTEIN 7.2 GM/DL (6.4-8.2)
[2017-07-12] MEDS ORDERED: BENZ0.5T PO (11:50)
[2017-07-12] MEDS ORDERED: RISP1 PO (11:50)
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
--- NOTE | 2017-07-12 23:11 | EKG ---
Date Performed: 07/11/2017 Time Performed: 13:16:43 PTAGE: 61 years EKG: Sinus rhythm NORMAL ECG PREVIOUS TRACING : 10/25/2011 15.17 Since the previous tracing, no significant change noted DOCTOR: Tad Batista Interpretating Date/Time 07/12/2017 23:09:46
== END 2017-07-12 14:15 | disposition left against medical advice (07) | DRG 885 ==
LOC: NEPD 23:39 → NEDA 07-10 07:46 → H260 07-10 08:25
PROVIDERS: ADMIT Psychiatry & Neurology Psychiatry; ATTEND Psychiatry & Neurology Psychiatry
DX: F25.0 Schizoaffective disorder, bipolar type (principal); R45.851 Suicidal ideations; R45.850 Homicidal ideations
CPT/HCPCS: 80053; 80307; 81001; 93005; 99285

== ENCOUNTER 2017-07-21 16:24 | Emergency (ER) | payer OTHER ==
[~2017-07-21] VITALS: Ht 167.6 cm; Wt 53.0 kg
[~2017-07-21 16:24] MED LIST changes: -ALBUAER3 INH; +BENZ0.5T PO; +RISP1 PO
[2017-07-21 16:58] VITALS: BP 135/63; PULSE 82; RESP 16; TEMP 98.1; O2SAT 95
--- NOTE | 2017-07-21 19:45 | PD ---
HPI Chief Complaint: Pain: Acute or Chronic Time Seen by Provider: 19:29 Travel History International Travel<30 days: No Contact w/Intl Traveler<30days: No Traveled to known affect area: No History of Present Illness HPI This is a 61-year-old homeless female with history of schizoaffective disorder who is a frequent visitor to this emergency department. She presents complaining of bilateral calf discomfort. She reports that she walks approximately 5 hours per day secondary to homelessness and today she developed discomfort in both calf regions. She cannot describe her sensation past the discomfort. She denies any weakness. She denies any injury. She denies any generalized weakness or myalgias. She denies any dark-colored urine. She has no other complaints at this time. PFSH Past Medical History Arthritis: Yes Asthma: Yes Bipolar Disorder: Yes Anxiety: Yes Depression: Yes Heart Rhythm Problems: No Cancer: No Cardiac Catheterization: Yes Cardiovascular Problems: Yes (CAD) High Cholesterol: No Chest Pain: Yes Congestive Heart Failure: No COPD: No Cerebrovascular Accident: Yes (in 90s per pt) Coronary Artery Disease: Yes Diminished Hearing: Yes (bilateral listening device implant) Endocrine: No Genitourinary: No Headaches: No Immune Disorder: No Musculoskeletal: Yes Neurologic: Yes Psychiatric: Yes Reproductive: No Respiratory: Yes Migraines: No Menopausal: Yes : 5 Para: 4 Miscarriage: 1 Past Surgical History Abdominal Surgery: No AICD: No Arteriovenous Shunt: No Body Medical Devices: bilateral cochlear implant /hearing aid implants - per pt Cardiac Surgery: Yes (cardiac catheterization with stents & transplant per pt/ in [place] ) Coronary Stent: Yes Ear Surgery: Yes (cochlear implants per pt) Endocrine Surgery: No Eye Surgery: No Genitourinary Surgery: No Gynecologic Surgery: Yes (Hysterectomy) Hysterectomy: Yes Insulin Pump: No Joint Replacement: No Oral Surgery: No Pacemaker: No Thoracic Surgery: No Other Surgery: Yes (rectual surgery) Social History Alcohol Use: Yes (SOCIALY) Tobacco Use: Yes (1-2 PACKS DAILY OF CIGARETTES) Substance Use: No Allergies-Medications (Allergen,Severity, Reaction): Coded Allergies: citalopram (Unverified Allergy, Severe, 07/09/17) LEXAPRO paroxetine (Unverified Allergy, Severe, 07/09/17) sertraline (Unverified Allergy, Severe, 07/09/17) aspirin (Unverified Allergy, Mild, 07/09/17) Reported Meds & Prescriptions Reported Meds & Active Scripts Active Benztropine (Benztropine Mesylate) 0.5 Mg Tab 0.5 Mg PO BID 15 Days Risperdal (Risperidone) 1 Mg Tab 1 Mg PO Q12HR 15 Days Review of Systems Except as stated in HPI: all other systems reviewed are Neg Physical Exam Narrative GENERAL: This is a disheveled appearing female who is in no acute distress. SKIN: Warm and dry. HEAD: Atraumatic. Normocephalic. EYES: Pupils equal and round. No scleral icterus. No injection or drainage. ENT: No nasal bleeding or discharge. Mucous membranes pink and moist. NECK: Trachea midline. No JVD. CARDIOVASCULAR: Regular rate and rhythm. No murmur appreciated. RESPIRATORY: No accessory muscle use. Clear to auscultation. Breath sounds equal bilaterally. GASTROINTESTINAL: Abdomen soft, non-tender, nondistended. Hepatic and splenic margins not palpable. MUSCULOSKELETAL: No obvious deformities. There is no reproducible tenderness to palpation to the thighs or the calves. There is no soft tissue swelling or edema. The compartments are soft. 2+ dorsalis pedis and posterior tibial pulse bilaterally. 5 out of 5 muscle strength hip flexion and extension, leg flexion and extension, dorsi and plantar flexion bilaterally. No clonus. NEUROLOGICAL: Awake and alert. No obvious cranial nerve deficits. Motor grossly within normal limits. Normal speech. Data Data Last Documented VS Vital Signs Date Time Temp Pulse Resp B/P (MAP) Pulse Ox O2 Delivery O2 Flow Rate FiO2 07/21/17 16:58 98.1 82 16 135/63 (87) 95 Orders Orders Basic Metabolic Panel (Bmp) (07/21/17 19:34) Magnesium (Mg) (07/21/17 19:34) Creatine Kinase (Cpk) (07/21/17 19:34) Ed Discharge Order (07/21/17 21:08) Labs Laboratory Tests Test 07/21/17 20:02 Blood Urea Nitrogen 13 MG/DL Creatinine 0.93 MG/DL Random Glucose 91 MG/DL Calcium Level 9.4 MG/DL Magnesium Level 1.9 MG/DL Sodium Level 142 MEQ/L Potassium Level 4.4 MEQ/L Chloride Level 106 MEQ/L Carbon Dioxide Level 30.1 MEQ/L Anion Gap 6 MEQ/L Estimat Glomerular Filtration Rate 62 ML/MIN Total Creatine Kinase 59 U/L [facility] Medical Decision Making Medical Screen Exam Complete: Yes Emergency Medical Condition: Yes Medical Record Reviewed: Yes Differential Diagnosis Fatigue from walking versus electrolyte abnormality versus muscle cramp versus rhabdomyolysis Narrative Course Lab work was obtained which is unremarkable. The patient was ambulatory in the ED with no apparent gait disturbance. I suspect her symptoms are secondary to fatigue from walking or malingering. She is stable for discharge. Diagnosis Primary Impression: H/O pain when walking Additional Instructions: Follow-up with a primary care physician as needed. Return for any emergent medical conditions. Med/Other Pt SpecificInfo: No Change to Meds Disposition: 01 DISCHARGE HOME Condition: Stable Andre Lazaro Jul 21, 2017 19:45
[2017-07-21 20:27] LABS: BICARBONATE 30.1 MEQ/L (21.0-32.0); CALCIUM 9.4 MG/DL (8.5-10.1); CREATININE 0.93 MG/DL (0.50-1.00); MAGNESIUM 1.9 MG/DL (1.5-2.5)
== END 2017-07-21 21:17 | disposition home or self-care (01) ==
LOC: NED 16:24 → NEPD 21:17
DX: R53.83 Other fatigue (principal); F17.210 Nicotine dependence, cigarettes, uncomplicated; F31.9 Bipolar disorder, unspecified; Z79.899 Other long term (current) drug therapy
CPT/HCPCS: 80048; 82550; 83735; 99283

== ENCOUNTER 2017-08-10 03:18 | Emergency (ER) | END 2017-08-10 07:10 | disposition left against medical advice (07) | DX: F31.9 Bipolar disorder, unspecified (principal); F17.210 Nicotine dependence, cigarettes, uncomplicated ==

== ENCOUNTER 2017-08-17 01:19 | Emergency (ER) | payer MEDICAID ==
[~2017-08-17] VITALS: Ht 167.6 cm; Wt 52.0 kg
[2017-08-17 01:25] VITALS: BP 125/67; PULSE 93; RESP 18; TEMP 98.4; O2SAT 98
--- NOTE | 2017-08-17 03:42 | PD ---
HPI Chief Complaint: Psychiatric Symptoms Time Seen by Provider: 03:31 Travel History International Travel<30 days: No Contact w/Intl Traveler<30days: No Traveled to known affect area: No History of Present Illness HPI 62-year-old white female with a history of schizoaffective disorder and homelessness returns to the ER tonight requesting psychological evaluation. She was just seen in the ER a few days ago. The patient here appears to be more concerned with sleeping then answering any review of systems and evaluation of her visit today. The patient just states that she needs medications and needs to get sleep and rolls over and attempts to sleep. She pulls her covers up. She is somewhat hard to understand due to lack of dentition. Patient states that she moved back to the area in the last 2 months and has not been following up. Patient admits to being depressed. Positive suicidal ideation but no current plan. No homicidal ideation. PFSH Past Medical History Arthritis: Yes Asthma: Yes Bipolar Disorder: Yes Anxiety: Yes Depression: Yes Heart Rhythm Problems: No Cancer: No Cardiac Catheterization: Yes Cardiovascular Problems: Yes (CAD) High Cholesterol: No Chest Pain: Yes Congestive Heart Failure: No COPD: No Cerebrovascular Accident: Yes (in 90s per pt) Coronary Artery Disease: Yes Diminished Hearing: Yes (bilateral listening device implant) Endocrine: No Gastrointestinal Disorders: Yes Genitourinary: No Headaches: No Hypertension: No Immune Disorder: No Implanted Vascular Access Dvce: Yes Musculoskeletal: Yes Neurologic: Yes Psychiatric: Yes Reproductive: No Respiratory: Yes Immunizations Current: Yes Migraines: No Menopausal: Yes : 5 Para: 4 Miscarriage: 1 Past Surgical History Abdominal Surgery: No AICD: No Arteriovenous Shunt: No Body Medical Devices: bilateral cochlear implant /hearing aid implants - per pt Cardiac Surgery: Yes (cardiac catheterization with stents & transplant per pt/ in [place] ) Coronary Stent: Yes Ear Surgery: Yes (cochlear implants per pt) Endocrine Surgery: No Eye Surgery: No Genitourinary Surgery: No Gynecologic Surgery: Yes (Hysterectomy) Hysterectomy: Yes Insulin Pump: No Joint Replacement: No Oral Surgery: No Pacemaker: No Thoracic Surgery: No Other Surgery: Yes (rectal surgery) Social History Alcohol Use: Yes Tobacco Use: Yes (1-2 PACKS DAILY OF CIGARETTES) Substance Use: No Allergies-Medications (Allergen,Severity, Reaction): Coded Allergies: citalopram (Unverified Allergy, Severe, 08/17/17) LEXAPRO paroxetine (Unverified Allergy, Severe, 08/17/17) sertraline (Unverified Allergy, Severe, 08/17/17) aspirin (Unverified Allergy, Mild, 08/17/17) Reported Meds & Prescriptions Reported Meds & Active Scripts Active Review of Systems ROS Limitations: Poor Historian Physical Exam Narrative GENERAL: Well-nourished, well-developed patient. SKIN: Warm and dry. HEAD: Normocephalic and atraumatic. EYES: No scleral icterus. No injection or drainage. ENT: No nasal drainage noted. Mucous membranes pink. Airway patent. Poor dentition NECK: Supple, trachea midline. Moves head freely without obvious discomfort. CARDIOVASCULAR: Regular rate and rhythm without murmurs, gallops, or rubs. RESPIRATORY: Breath sounds equal bilaterally. No accessory muscle use. GASTROINTESTINAL: Abdomen soft, non-tender, nondistended. EXTREMITIES: No cyanosis or edema. BACK: Nontender without obvious deformity. No CVA tenderness. NEURO: Patient is alert and oriented. no sensorimotor deficits. Nonfocal. Mumbled speech. PSYCH: No delusions. No auditory or visual hallucinations. Data Data Last Documented VS Vital Signs Date Time Temp Pulse Resp B/P (MAP) Pulse Ox O2 Delivery O2 Flow Rate FiO2 08/17/17 01:25 98.4 93 18 125/67 (86) 98 Orders Orders Psych Screen (08/17/17 03:42) Ed Discharge Order (08/17/17 05:35) MDM Medical Decision Making Medical Screen Exam Complete: Yes Emergency Medical Condition: Yes Medical Record Reviewed: Yes Differential Diagnosis MDM: High Differential diagnoses: Schizophrenia, schizoaffective disorder, bipolar, anxiety, depression, adjustment reaction, mood disorder NOS, ODD, depressive disorder NOS, dementia, dementia with agitation, psychosis NOS, substance induced mood disorder, DMDD, Asperger syndrome, infection,electrolyte abnormality, malingering. Narrative Course Mental health screening discussed with the patient. Psychiatric screen ordered. The patient is medically cleared. The patient has now come up to the nursing station advising them she does not want to wait to see the psychiatrist in the morning. She has slept for several hours and is feeling better would like to leave. The patient is not acutely suicidal homicidal. There is no indication for involuntary admission. The patient is up and ambulatory with a steady gait. She is speaking clearly. Patient is considered medically stable and can be discharged safely. I suspect she was malingering to obtain a domicile this evening. The patient mentioned to me that she was homeless and she had nowhere to sleep. Diagnosis Primary Impression: Medical clearance for psychiatric admission Additional Impression: Homelessness Patient Instructions: General Instructions Additional Instructions: Rest. Increase fluids. Avoid alcohol. Avoid illegal substances. Follow-up with Babat[facility] Me[facility]. Return to the ER for emergencies Med/Other Pt SpecificInfo: No Meds Exist/No RX given Disposition: DISCHARGE HOME Condition: Stable Scooter Steward August 17, 2017 03:42
== END 2017-08-17 05:57 | disposition home or self-care (01) ==
LOC: NEPD 01:19
DX: F25.9 Schizoaffective disorder, unspecified (principal); J45.909 Unspecified asthma, uncomplicated; F31.9 Bipolar disorder, unspecified; I25.10 Atherosclerotic heart disease of native coronary artery without angina pectoris; F41.9 Anxiety disorder, unspecified; F17.210 Nicotine dependence, cigarettes, uncomplicated; Z88.6 Allergy status to analgesic agent; Z59.0 Homelessness; Z86.73 Personal history of transient ischemic attack (TIA), and cerebral infarction without residual deficits
CPT/HCPCS: 99283

== ENCOUNTER 2017-08-20 23:09 | Emergency (ER) | payer MEDICAID ==
[~2017-08-20] VITALS: Ht 167.6 cm; Wt 52.0 kg
[2017-08-20 23:19] VITALS: BP 118/57; PULSE 86; RESP 20; TEMP 98; O2SAT 96
--- NOTE | 2017-08-20 23:43 | PD ---
HPI Chief Complaint: Psychiatric Symptoms Time Seen by Provider: 23:27 Travel History International Travel<30 days: No Contact w/Intl Traveler<30days: No Traveled to known affect area: No History of Present Illness HPI The patient was seen and examined in the presence of the nurse. This patient says that she is suicidal. She does not seem very genuine. She is homeless [place] on [place]. This is her third visit for psych eval in a week. The other 2 times she slept in the bed for a few hours and then got up and wandered away without getting her psych screen. Patient does not really want to answer any questions. She just wants to go to bed. She is tired. Symptom severity is mild. PFSH Past Medical History Arthritis: Yes Asthma: Yes Bipolar Disorder: Yes Anxiety: Yes Depression: Yes Heart Rhythm Problems: No Cancer: No Cardiac Catheterization: Yes Cardiovascular Problems: Yes (CAD) High Cholesterol: No Chest Pain: Yes Congestive Heart Failure: No COPD: No Cerebrovascular Accident: Yes (in 90s per pt) Coronary Artery Disease: Yes Diminished Hearing: Yes (bilateral listening device implant) Endocrine: No Gastrointestinal Disorders: Yes Genitourinary: No Headaches: No Hypertension: No Immune Disorder: No Implanted Vascular Access Dvce: Yes Musculoskeletal: Yes Neurologic: Yes Psychiatric: Yes Reproductive: No Respiratory: Yes Immunizations Current: Yes Migraines: No Tetanus Vaccination: < 5 Years Influenza Vaccination: Yes ?: Not Menopausal: Yes : 5 Para: 4 Miscarriage: 1 Past Surgical History Abdominal Surgery: No AICD: No Arteriovenous Shunt: No Body Medical Devices: bilateral cochlear implant /hearing aid implants - per pt Cardiac Surgery: Yes (cardiac catheterization with stents & transplant per pt/ in [place] ) Coronary Stent: Yes Ear Surgery: Yes (cochlear implants per pt) Endocrine Surgery: No Eye Surgery: No Genitourinary Surgery: No Gynecologic Surgery: Yes (Hysterectomy) Hysterectomy: Yes Insulin Pump: No Joint Replacement: No Oral Surgery: No Pacemaker: No Thoracic Surgery: No Other Surgery: Yes (rectal surgery) Social History Alcohol Use: Yes Tobacco Use: Yes (1-2 PACKS DAILY OF CIGARETTES) Substance Use: No Allergies-Medications (Allergen,Severity, Reaction): Coded Allergies: citalopram (Unverified Allergy, Severe, 08/20/17) LEXAPRO paroxetine (Unverified Allergy, Severe, 08/20/17) sertraline (Unverified Allergy, Severe, 08/20/17) aspirin (Unverified Allergy, Mild, 08/20/17) Reported Meds & Prescriptions Reported Meds & Active Scripts Active No Active Prescriptions or Reported Medications Review of Systems General / Constitutional: No: Fever Eyes: No: Visual changes HENT: No: Headaches Cardiovascular: No: Chest Pain or Discomfort Respiratory: No: Shortness of Breath Gastrointestinal: No: Abdominal Pain Genitourinary: No: Dysuria Musculoskeletal: No: Pain Skin: No Rash Neurologic: No: Weakness Psychiatric: Positive: Depression, Suicidal Ideations Endocrine: No: Polydipsia Hematologic/Lymphatic: No: Easy Bruising Physical Exam Narrative GENERAL: Disheveled well-developed patient in no apparent distress. SKIN: Focused skin assessment reveals no rash and nodules. Skin is Warm and dry. HEAD: Atraumatic. Normocephalic. EYES: Pupils equal and round. No scleral icterus. No injection or drainage. ENT: No nasal bleeding or discharge. Mucous membranes pink and moist. NECK: Trachea midline. No JVD. CARDIOVASCULAR: Regular rate and rhythm. No murmur appreciated. RESPIRATORY: No accessory muscle use. Clear to auscultation. Breath sounds equal bilaterally. GASTROINTESTINAL: Abdomen soft, non-tender, nondistended. Hepatic and splenic margins not palpable. MUSCULOSKELETAL: No obvious deformities. No clubbing. No cyanosis. No edema. NEUROLOGICAL: Awake and alert. No obvious cranial nerve deficits. Motor grossly within normal limits. Very difficult to understand speech possibly due to she has very few teeth that are not rotted away PSYCHIATRIC: Appropriate mood and affect; insight and judgment poor. Data Data Last Documented VS Vital Signs Date Time Temp Pulse Resp B/P (MAP) Pulse Ox O2 Delivery O2 Flow Rate FiO2 08/20/17 23:19 98.0 86 20 118/57 (77) 96 Orders Orders Psych Screen (08/20/17 23:37) MDM Medical Decision Making Medical Screen Exam Complete: Yes Emergency Medical Condition: Yes Medical Record Reviewed: Yes Differential Diagnosis Malingering, suicidal, adjustment disorder Narrative Course I have reviewed the patient's electronic medical record. Reviewed her last 2 visits. Her last 2 visits seem identical to this visit. She says she is suicidal and promptly opposed to cover up overhead and goes to bed and does not want to talk anymore. She does not seem genuine In claiming she is suicidal. She is medically clear. She has no physical complaints and normal vital signs. I have ordered psychiatric evaluation but I suspect that she will wander away during the evening before this happens. Diagnosis Primary Impression: Suicidal ideation Additional Impressions: Homelessness Malingering Scripts No Active Prescriptions or Reported Meds Miguel Valdez MD August 20, 2017 23:43
[2017-08-21] MEDS ORDERED: RISP1 PO (09:46)
[2017-08-21] MEDS ORDERED: BENZ0.5T PO (09:46)
--- NOTE | 2017-08-21 09:55 | PD.PSY.CON ---
Provisional Diagnosis Admission Date Date of consultation 08/21/2017 [place] I. 1. Schizoaffective disorder, bipolar type [place] II. Deferred History of Present Illness Service Psychiatry Consult Requested By Emergency department Reason for Consult Psychiatric evaluation Primary Care Physician No Primary Care Physician HPI Ms. Toribio is a 62-year-old female with a history of schizoaffective disorder who presents to the emergency department voluntarily complaining of suicidal ideation. ED provider note suggests that this complaint was not perceived as terribly genuine. Patient is well-known to the psychiatric service here from multiple previous ED visits and admissions. She was most recently admitted under my care last month and left AGAINST MEDICAL ADVICE. EMR reviewed. Patient seen and examined. Chart reviewed. Case discussed with nursing staff. On my examination today, the patient says that all that she needs his refills for her medications. She is requesting discharge from the emergency room this morning. She denies any suicidal or homicidal ideation, intent or plan. Denies significant issues with mood, although she does report occasional dysphoria. Denies any audiovisual hallucinations. I can elicit no delusional material. Thought process is a little bit rambling but approximates her chronic baseline. Remainder of psychiatric ROS is negative. No acute physical complaints. Past psychiatric history: Previous diagnosis of schizoaffective disorder. She is not following up for outpatient psychiatric services. Most recent psychiatric admission was here at [facility]. Reports previous suicide attempts by overdose, drowning and hanging. Family history: Patient denies a family history of mental illness or suicide. Chemical dependency history: Patient denies any abuse of drugs or alcohol. Social history: Patient is homeless. She dropped out of college. She collects SSI. She is single with no children. She denies any access to guns or firearms. She is a [employer]. Review of Systems ROS Limitations: Poor Historian Except as stated in HPI: all other systems reviewed are Neg Past Family Social History Coded Allergies: citalopram (Unverified Allergy, Severe, 08/20/17) LEXAPRO paroxetine (Unverified Allergy, Severe, 08/20/17) sertraline (Unverified Allergy, Severe, 08/20/17) aspirin (Unverified Allergy, Mild, 08/20/17) Past Medical History See electronic medical record Active Scripts Benztropine (Benztropine) 0.5 Mg Tab, 0.5 MG PO BID for Side effect management for 7 Days, #14 TAB 0 Refills Prov:Carl Ruiz MD 08/21/17 Risperidone (Risperdal) 1 Mg Tab, 1 MG PO Q12HR for Mental Health for 7 Days, TAB 0 Refills Prov:Carl Ruiz MD 08/21/17 Patient's Strengths (min. 2) Able to access clinical care. Verbally fluent. Physical Exam Physical exam completed by ED provider. On my examination today, the patient appears to be in no acute physical distress. No motor abnormalities noted. Vital signs reviewed: Vital Signs Vital Signs Date Time Temp Pulse Resp B/P (MAP) Pulse Ox O2 Delivery O2 Flow Rate FiO2 08/20/17 23:19 98.0 86 20 118/57 (77) 96 Lab Results No laboratories obtained this admission Mental Status Examination Appearance: Disheveled (But maintaining basic hygiene) Consciousness: Alert Orientation: Person, Place (At least) Motor Activity: Normal gait Speech: Unremarkable Language: Other (Somewhat rambling) Fund of Knowledge: Adequate Attention and Concentration: Adequate Memory: Unremarkable (Grossly intact on clinical exam) Mood: Appropriate Affect: Blunt Thought Process & Associations: Circumstantial Thought Content: Appropriate Hallucination Type: None Delusion Type: None Suicidal Ideation: No Suicidal Plan: No Suicidal Intention: No Homicidal Ideation: No Homicidal Plan: No Homicidal Intention: No Insight: Poor (Chronic condition) Judgment: Poor (Chronic condition) Assessment & Plan Problem List: (1) Schizoaffective disorder ICD Codes: F25.9 - Schizoaffective disorder, unspecified Assessment & Plan 62-year-old female with psychiatric history as detailed above who presents voluntarily for psychiatric evaluation. On my examination today, the patient appears more or less close to her recent chronic baseline. She denies any suicidal or homicidal ideation. There is no evidence of severely decompensated mental illness as defined under the Schwarz act. There is no evidence of grave self-care deficit. Patient is requesting discharge from the emergency room this morning with scripts. She does not meet the Schwarz act criteria after weighing the relevant factors. I have offered patient long-acting injectable Risperdal Consta or Invega Sustenna to promote good adherence prior to discharge from the ED, but she has declined. I do have concerns that the patient will not fill the prescription that I provide to her on discharge and will not follow up for outpatient mental health services, and so I have consulted the [facility] career education teacher to try to link the patient with services on an outpatient basis and facilitate filling her scripts. I have recommended to the patient that she follow up psychiatrically on an outpatient basis and have reminded her to return to the psychiatric emergency room for any concerning psychiatric symptoms as part of a general safety plan. I have provided the patient with a 7 day supply of most recent psych meds on file: Risperdal 1mg PO BID and Cogentin 0.5mg PO BID. Patient is otherwise psychiatrically clear for discharge from the ED. Thank you very much for this consultation. Problem Qualifiers (1) Schizoaffective disorder: Qualified Codes: F25.0 - Schizoaffective disorder, bipolar type Carl Ruiz MD August 21, 2017 09:55
[2017-08-21 14:00] VITALS: BP 122/79; PULSE 96; RESP 20; TEMP 98.8; O2SAT 98
--- NOTE | 2017-08-21 19:10 | PD ---
Physical Exam Narrative Patient was seen by medical team. Patient was seen by psychiatry team. Data Data Last Documented VS Vital Signs Date Time Temp Pulse Resp B/P (MAP) Pulse Ox O2 Delivery O2 Flow Rate FiO2 08/21/17 14:00 98.8 96 20 122/79 (93) 98 Room Air Orders Orders Psych Screen (08/20/17 23:37) Diet Regular Basic (08/21/17 Breakfast) Consult [facility] (08/21/17 ) Diet Regular Basic (08/21/17 Lunch) Diet Regular Basic (08/21/17 Dinner) Ed Discharge Order (08/21/17 19:08) MDM Supervised Visit with [facility]BE: No Narrative Course Patient was medically cleared by ED physician. Patient was psychiatrically cleared by psychiatric team. Diagnosis Primary Impression: Suicidal ideation Additional Impressions: Malingering Homelessness Schizoaffective disorder, bipolar type Patient Instructions: General Instructions Additional Instruction: Follow-up local physician. Med/Other Pt SpecificInfo: No Change to Meds Scripts Benztropine (Benztropine) 0.5 Mg Tab 0.5 MG PO BID for Side effect management for 7 Days, #14 TAB 0 Refills Prov: Carl Ruiz MD 08/21/17 Risperidone (Risperdal) 1 Mg Tab 1 MG PO Q12HR for Mental Health for 7 Days, TAB 0 Refills Prov: Carl Ruiz MD 08/21/17 Disposition: 01 DISCHARGE HOME Condition: Stable Mao Lee MD August 21, 2017 19:10
== END 2017-08-21 19:56 | disposition home or self-care (01) ==
LOC: NEPD 23:09 → NEPJ 08-21 19:56
DX: R45.851 Suicidal ideations (principal); F25.0 Schizoaffective disorder, bipolar type; F17.210 Nicotine dependence, cigarettes, uncomplicated; Z59.0 Homelessness; Z76.5 Malingerer [conscious simulation]
CPT/HCPCS: 99284

== ENCOUNTER 2017-08-22 22:06 | Inpatient (IN) | payer OTHER ==
[~2017-08-22] VITALS: Ht 167.6 cm; Wt 54.6 kg
[2017-08-22 22:25] VITALS: BP 124/86; PULSE 85; RESP 12; TEMP 98.7; O2SAT 100
[2017-08-22 22:41] LABS: AUTOMATED NEUTROPHIL # 5.8 TH/MM3 (1.8-7.7); BASOPHIL # 0.1 TH/MM3 (0-0.2); BASOPHIL % 0.8 % (0.0-2.0); EOSINOPHIL # 0.2 TH/MM3 (0-0.4); EOSINOPHIL % 2.6 % (0.0-4.0); HEMATOCRIT 41.3 % (35.0-46.0); HEMOGLOBIN 14.3 GM/DL (11.6-15.3); LYMPH % 25.7 % (9.0-44.0); LYMPHOCYTE # 2.4 TH/MM3 (1.0-4.8); MEAN CORPUSCULAR HEMOGLOBIN 32.5 PG (27.0-34.0); MEAN CORPUSCULAR HGB CONC 34.5 % (32.0-36.0); MEAN PLATELET VOLUME 7.6 FL (7.0-11.0); MONO % 8.9 % (0.0-8.0); MONOCYTE # 0.8 TH/MM3 (0-0.9); PLATELET COUNT 288 TH/MM3 (150-450); RED BLOOD COUNT 4.39 MIL/MM3 (4.00-5.30); RED CELL DISTRIBUTION WIDTH 13.3 % (11.6-17.2); WHITE BLOOD COUNT 9.3 TH/MM3 (4.0-11.0)
[2017-08-22 22:51] LABS: ALBUMIN 3.9 GM/DL (3.4-5.0); ALT (GPT) 21 U/L (10-53); AST (GOT) 18 U/L (15-37); BICARBONATE 26.8 MEQ/L (21.0-32.0); BLOOD UREA NITROGEN 14 MG/DL (7-18); CALCIUM 9.4 MG/DL (8.5-10.1); CHLORIDE 101 MEQ/L (98-107); CREATININE 0.85 MG/DL (0.50-1.00); GLOMERULAR FILTRATION RATE 68 ML/MIN (>89); GLUCOSE,RANDOM 91 MG/DL (74-106); SODIUM (NA) 139 MEQ/L (136-145)
[2017-08-22 22:54] LABS: ALKALINE PHOSPHATASE 137 U/L (45-117); TOTAL BILIRUBIN ADULT 0.3 MG/DL (0.2-1.0); TOTAL PROTEIN 7.5 GM/DL (6.4-8.2)
--- NOTE | 2017-08-22 23:13 | PD ---
HPI Chief Complaint: Suicide Ideation/Attempt Time Seen by Provider: 22:10 Travel History International Travel<30 days: No Contact w/Intl Traveler<30days: No Traveled to known affect area: No History of Present Illness HPI Patient is a 62 -year-old female presenting to the emergency department under Schwarz act for psychiatric evaluation. Patient states she feels suicidal for the last 5 hours. She states she has a plan to overdose on her medications. Patient is currently on Cogentin and Risperdal. She denies any hallucinations or homicidal ideations. She states that she is homeless. She reports tobacco use but denies any illicit drug use. Patient has no physical complaints at this time. Patient reports that she had a history of a heart transplant in which they used a box to put her heart in. PFSH Past Medical History Hx Anticoagulant Therapy: No Arthritis: Yes Asthma: Yes Bipolar Disorder: Yes Anxiety: Yes Depression: Yes Cardiac Catheterization: Yes Chest Pain: Yes Coronary Artery Disease: Yes Diminished Hearing: Yes (bilateral listening device implant) Musculoskeletal: Yes Neurologic: Yes Immunizations Current: Yes ?: Not Menopausal: Yes : 5 Para: 4 Miscarriage: 1 Past Surgical History Abdominal Surgery: No AICD: No Arteriovenous Shunt: No Body Medical Devices: bilateral cochlear implant /hearing aid implants - per pt Cardiac Surgery: Yes (cardiac catheterization with stents & transplant per pt/ EMR in [place] ) Coronary Stent: Yes Ear Surgery: Yes (cochlear implants per pt) Endocrine Surgery: No Eye Surgery: No Genitourinary Surgery: No Gynecologic Surgery: Yes (Hysterectomy) Hysterectomy: No Insulin Pump: No Joint Replacement: No Oral Surgery: No Pacemaker: No Thoracic Surgery: No Other Surgery: Yes (rectal surgery) Social History Alcohol Use: Yes Tobacco Use: Yes (1-2 PACKS DAILY OF CIGARETTES) Substance Use: No Allergies-Medications (Allergen,Severity, Reaction): Coded Allergies: citalopram (Unverified Allergy, Severe, 08/20/17) LEXAPRO paroxetine (Unverified Allergy, Severe, 08/20/17) sertraline (Unverified Allergy, Severe, 08/20/17) aspirin (Unverified Allergy, Mild, 08/20/17) Reported Meds & Prescriptions Reported Meds & Active Scripts Active Benztropine (Benztropine Mesylate) 0.5 Mg Tab 0.5 Mg PO BID 7 Days Risperdal (Risperidone) 1 Mg Tab 1 Mg PO Q12HR 7 Days Review of Systems Except as stated in HPI: all other systems reviewed are Neg Psychiatric: Positive: Depression, Suicidal Ideations Physical Exam Narrative GENERAL: Thin, well-developed, alert female. Presenting in no acute distress. SKIN: Warm and dry. HEAD: Atraumatic. Normocephalic. EYES: Pupils equal and round. No scleral icterus. No injection or drainage. ENT: No nasal bleeding or discharge. Mucous membranes pink and moist. NECK: Trachea midline. No JVD. CARDIOVASCULAR: Regular rate and rhythm. RESPIRATORY: No accessory muscle use. Clear to auscultation. Breath sounds equal bilaterally. GASTROINTESTINAL: Abdomen soft, non-tender, nondistended. Hepatic and splenic margins not palpable. MUSCULOSKELETAL: Extremities without clubbing, cyanosis, or edema. No obvious deformities. NEUROLOGICAL: Awake and alert. No obvious cranial nerve deficits. Motor grossly within normal limits. Five out of 5 muscle strength in the arms and legs. Normal speech. PSYCHIATRIC: Suspicious mood and affect; insight and judgment normal. Data Data Last Documented VS Vital Signs Date Time Temp Pulse Resp B/P (MAP) Pulse Ox O2 Delivery O2 Flow Rate FiO2 08/22/17 22:25 98.7 85 12 124/86 (99) 100 Orders Orders Complete Blood Count With Diff (08/22/17 22:21) Comprehensive Metabolic Panel (08/22/17 22:21) Urinalysis - C+S If Indicated (08/22/17 22:21) Psych Screen (08/22/17 22:21) Alcohol (Ethanol) (08/22/17 22:21) Salicylates (Aspirin) (08/22/17 22:21) Tylenol (Acetaminophen) (08/22/17 22:21) Labs Laboratory Tests Test 08/22/17 22:30 White Blood Count 9.3 TH/MM3 Red Blood Count 4.39 MIL/MM3 Hemoglobin 14.3 GM/DL Hematocrit 41.3 % Mean Corpuscular Volume 94.0 FL Mean Corpuscular Hemoglobin 32.5 PG Mean Corpuscular Hemoglobin Concent 34.5 % Red Cell Distribution Width 13.3 % Platelet Count 288 TH/MM3 Mean Platelet Volume 7.6 FL Neutrophils (%) (Auto) 62.0 % Lymphocytes (%) (Auto) 25.7 % Monocytes (%) (Auto) 8.9 % Eosinophils (%) (Auto) 2.6 % Basophils (%) (Auto) 0.8 % Neutrophils # (Auto) 5.8 TH/MM3 Lymphocytes # (Auto) 2.4 TH/MM3 Monocytes # (Auto) 0.8 TH/MM3 Eosinophils # (Auto) 0.2 TH/MM3 Basophils # (Auto) 0.1 TH/MM3 CBC Comment DIFF FINAL Differential Comment Blood Urea Nitrogen 14 MG/DL Creatinine 0.85 MG/DL Random Glucose 91 MG/DL Total Protein 7.5 GM/DL Albumin 3.9 GM/DL Calcium Level 9.4 MG/DL Alkaline Phosphatase 137 U/L Aspartate Amino Transf (AST/SGOT) 18 U/L Alanine Aminotransferase (ALT/SGPT) 21 U/L Total Bilirubin 0.3 MG/DL Sodium Level 139 MEQ/L Potassium Level 4.0 MEQ/L Chloride Level 101 MEQ/L Carbon Dioxide Level 26.8 MEQ/L Anion Gap 11 MEQ/L Estimat Glomerular Filtration Rate 68 ML/MIN Acetaminophen Level LESS THAN 2.0 MCG/ML Ethyl Alcohol Level LESS THAN 3 MG/DL MDM Medical Decision Making Medical Screen Exam Complete: Yes Emergency Medical Condition: Yes Interpretation(s) Laboratory Tests Test 08/22/17 22:30 White Blood Count 9.3 TH/MM3 Red Blood Count 4.39 MIL/MM3 Hemoglobin 14.3 GM/DL Hematocrit 41.3 % Mean Corpuscular Volume 94.0 FL Mean Corpuscular Hemoglobin 32.5 PG Mean Corpuscular Hemoglobin Concent 34.5 % Red Cell Distribution Width 13.3 % Platelet Count 288 TH/MM3 Mean Platelet Volume 7.6 FL Neutrophils (%) (Auto) 62.0 % Lymphocytes (%) (Auto) 25.7 % Monocytes (%) (Auto) 8.9 % Eosinophils (%) (Auto) 2.6 % Basophils (%) (Auto) 0.8 % Neutrophils # (Auto) 5.8 TH/MM3 Lymphocytes # (Auto) 2.4 TH/MM3 Monocytes # (Auto) 0.8 TH/MM3 Eosinophils # (Auto) 0.2 TH/MM3 Basophils # (Auto) 0.1 TH/MM3 CBC Comment DIFF FINAL Differential Comment Blood Urea Nitrogen 14 MG/DL Creatinine 0.85 MG/DL Random Glucose 91 MG/DL Total Protein 7.5 GM/DL Albumin 3.9 GM/DL Calcium Level 9.4 MG/DL Alkaline Phosphatase 137 U/L Aspartate Amino Transf (AST/SGOT) 18 U/L Alanine Aminotransferase (ALT/SGPT) 21 U/L Total Bilirubin 0.3 MG/DL Sodium Level 139 MEQ/L Potassium Level 4.0 MEQ/L Chloride Level 101 MEQ/L Carbon Dioxide Level 26.8 MEQ/L Anion Gap 11 MEQ/L Estimat Glomerular Filtration Rate 68 ML/MIN Acetaminophen Level LESS THAN 2.0 MCG/ML Ethyl Alcohol Level LESS THAN 3 MG/DL Vital Signs Date Time Temp Pulse Resp B/P (MAP) Pulse Ox O2 Delivery O2 Flow Rate FiO2 08/22/17 22:25 98.7 85 12 124/86 (99) 100 Differential Diagnosis Psychosis versus mood disorder versus schizophrenia versus bipolar disorder versus malingering versus other Narrative Course Patient is a 62-year-old female that presented to the emergency department voluntarily for psychiatric evaluation. Of note patient was just discharged yesterday from psych. Mental health screening discussed with the patient. Psychiatric screen ordered. Labs reviewed, no acute findings identified. Patient is medically clear for psychiatric evaluation. Diagnosis Primary Impression: Medical clearance for psychiatric admission Condition: Stable Laurence Bhakta August 22, 2017 23:13
[2017-08-22 23:17] LABS: ACETAMINOPHEN LESS THAN 2.0 MCG/ML (10.0-30.0)
[2017-08-23 00:28] VITALS: BP 99/58; PULSE 60; RESP 16; O2SAT 98
[2017-08-23 05:30] VITALS: BP 115/56; PULSE 61; RESP 17; O2SAT 99
[2017-08-23] MEDS ORDERED: MAGNESIUM HYDROXIDE SUSP 30 ML CUP PO PRN (09:45)
[2017-08-23] MEDS ORDERED: NICOTINE 21 MG/24 HR PATCH T-DERMAL PRN (09:45)
[2017-08-23] MEDS ORDERED: BENZTROPINE MESYLATE 1 MG TAB PO PRN (09:45)
[2017-08-23] MEDS ORDERED: BENZTROPINE MESYLATE 2 MG/2 ML VIAL IM PRN (09:45)
--- NOTE | 2017-08-23 09:52 | HHI.HP ---
Provisional Diagnosis Admission Date 08/23/2017 [place] I. 1. Schizoaffective disorder, other type, acute exacerbation [place] II. Deferred Certification of Person's Competence To Provide Express and Informed Consent I have personally examined Kristyn Toribio , a person being served at [facility] on, August 23, 2017 09:40. Express and informed consent means consent voluntarily given in writing, by a competent person, after sufficient explanation and disclosure of the subject matter involved to enable the person to make a knowing and willful decision without any element of force, fraud, deceit, duress, or other form of constraint or coercion. This person is 18 years of age or older, is not now known to be incompetent to consent to treatment with a guardian advocate, and does not have a health care surrogate or proxy currently making medical treatment decisions. I have found this person to be one of the following: [] Competent to provide express and informed consent, as defined above, for voluntary admission to this facility and is competent to provide express and informed consent for treatment. He/she has the consistent capacity to make well reasoned, willful, and knowing decisions concerning his or her medical or mental health treatment. The person fully and consistently understands the purpose of the admission for examination/placement and is fully capable of personally exercising all rights assured [place] [] Incompetent to provide express and informed consent to voluntary admission, and this is incompetent to provide express and informed consent to treatment. The person must be transferred to involuntary status and a petition for a guardian advocate filed with the Circuit Court. [x] Refusing to provide express and informed consent to voluntary admission but is competent to provide express and informed consent for treatment. The person must be discharged or transferred to involuntary status. Form shall be completed within 24 hours of a person's arrival at the receiving facility and filed in the clinical record of each person: 1. Admitted on a voluntary basis 2. Permitted to provide express and informed consent to his/her own treatment 3. Allowed to transfer from involuntary to voluntary status 4. Prior to permitting a person to consent to his or her own treatment after having been previously found incompetent to consent to treatment. History of Present Illness Capacity: Has Capacity (To consent for medication) Psych Chief Complaint: Psychosis/suicidal ideation HPI Ms. Toribio is a 62-year-old female with a history of schizoaffective disorder who presents under a Schwarz act from [facility] Department alleging that the patient said that she was having thoughts of overdosing on her psychotropic medications to kill herself. Patient is very well-known to the psychiatric service here from multiple previous ED visits and admissions. I saw the patient in consultation in the ED 2 days ago. Electronic medical record reviewed. Patient seen and examined. Chart reviewed. Case discussed with nursing staff. On my examination today, the patient presents as disheveled and disorganized. She is paranoid. She asks "what do you think they are drugging me with?" She endorses suicidal ideation at one moment and then denies it a short time later and requests discharge from the ED. She denies audiovisual hallucinations but appears internally stimulated. No other delusional material elicited. Affect is restricted and dysphoric. She denies any homicidal ideation. No hypomanic or manic symptoms. Remainder of the psychiatric ROS is negative. No acute physical complaints. Past psychiatric, family, chemical dependency and social history for this patient have been amply documented elsewhere, for example see my recent consultation. Review of Systems ROS Limitations: Psychotic, Poor Historian Except as stated in HPI: all other systems reviewed are Neg Past Family Social History Coded Allergies: citalopram (Unverified Allergy, Severe, 08/20/17) LEXAPRO paroxetine (Unverified Allergy, Severe, 08/20/17) sertraline (Unverified Allergy, Severe, 08/20/17) aspirin (Unverified Allergy, Mild, 08/20/17) Past Medical History See electronic medical record. Active Scripts Benztropine (Benztropine) 0.5 Mg Tab, 0.5 MG PO BID for Side effect management for 7 Days, #14 TAB 0 Refills Prov:Carl Ruiz MD 08/21/17 Risperidone (Risperdal) 1 Mg Tab, 1 MG PO Q12HR for Mental Health for 7 Days, TAB 0 Refills Prov:Carl Ruiz MD 08/21/17 Patient's Strengths (min. 2) In a monitored setting. Verbally fluent. Physical Exam Physical examination completed by ED provider. On my examination today, the patient appears to be in no acute physical distress. No motoric abnormalities noted. Labs and vitals reviewed: Vital Signs Vital Signs Date Time Temp Pulse Resp B/P (MAP) Pulse Ox O2 Delivery O2 Flow Rate FiO2 08/23/17 05:30 61 17 115/56 (75) 99 Room Air 08/22/17 22:25 98.7 Lab Results Test 08/22/17 22:30 White Blood Count 9.3 TH/MM3 Red Blood Count 4.39 MIL/MM3 Hemoglobin 14.3 GM/DL Hematocrit 41.3 % Mean Corpuscular Volume 94.0 FL Mean Corpuscular Hemoglobin 32.5 PG Mean Corpuscular Hemoglobin Concent 34.5 % Red Cell Distribution Width 13.3 % Platelet Count 288 TH/MM3 Mean Platelet Volume 7.6 FL Neutrophils (%) (Auto) 62.0 % Lymphocytes (%) (Auto) 25.7 % Monocytes (%) (Auto) 8.9 % Eosinophils (%) (Auto) 2.6 % Basophils (%) (Auto) 0.8 % Neutrophils # (Auto) 5.8 TH/MM3 Lymphocytes # (Auto) 2.4 TH/MM3 Monocytes # (Auto) 0.8 TH/MM3 Eosinophils # (Auto) 0.2 TH/MM3 Basophils # (Auto) 0.1 TH/MM3 CBC Comment DIFF FINAL Differential Comment Blood Urea Nitrogen 14 MG/DL Creatinine 0.85 MG/DL Random Glucose 91 MG/DL Total Protein 7.5 GM/DL Albumin 3.9 GM/DL Calcium Level 9.4 MG/DL Alkaline Phosphatase 137 U/L Aspartate Amino Transf (AST/SGOT) 18 U/L Alanine Aminotransferase (ALT/SGPT) 21 U/L Total Bilirubin 0.3 MG/DL Sodium Level 139 MEQ/L Potassium Level 4.0 MEQ/L Chloride Level 101 MEQ/L Carbon Dioxide Level 26.8 MEQ/L Anion Gap 11 MEQ/L Estimat Glomerular Filtration Rate 68 ML/MIN Salicylates Level 2.6 MG/DL Acetaminophen Level LESS THAN 2.0 MCG/ML Ethyl Alcohol Level LESS THAN 3 MG/DL Decreased GFR noted. Elevated alkaline phosphatase noted. Urine toxicology is not available for my review. Mental Status Examination Appearance: Disheveled Consciousness: Alert Orientation: Person, Place (At least) Motor Activity: Other (No motor abnormalities noted) Speech: Unremarkable Language: Other (Rambling) Fund of Knowledge: Inadequate Attention and Concentration: Easily Distracted Memory: Impaired (Suspect some degree of confabulation) Mood: Other (Dysphoric) Affect: Other (Restricted) Thought Process & Associations: Disorganized Thought Content: Bizarre thinking, Delusional Hallucination Type: None Delusion Type: Paranoid Suicidal Ideation: Yes Suicidal Plan: No Suicidal Intention: No Homicidal Ideation: No Homicidal Plan: No Homicidal Intention: No Insight: Poor Judgment: Poor Assessment & Plan Problem List: (1) Schizoaffective disorder ICD Codes: F25.9 - Schizoaffective disorder, unspecified Assessment & Plan 62-year-old female with psychiatric history as detailed above who presents under Schwarz act. Patient endorses ongoing suicidal ideation, although she is somewhat ambivalent on this point. Her recurrent ED presentations and frequent medication nonadherence suggests treatment failure in the community setting. Given this and current suicidal ideation I will admit the patient to the inpatient psychiatric unit for safety, observation and stabilization. Admit inpatient. Patient is presently declining to consent for voluntary admission. Involuntary status. I have completed first opinion. Consult for second opinion. Patient retains capacity to consent for medications. I will resume patient's Risperdal 1 mg twice daily for management of psychosis with Cogentin for side effect management. Per patient request I will resume her Wellbutrin. No reported history of seizure or eating disorder. Atarax as needed for anxiety. Benadryl as needed for sleep. Vitals every shift. Counselor to see. Disposition planning. Estimated length of stay: 5-7 days. Discharge Planning Pending psychiatric stabilization Request HC Surrog/Guard Advoc?: No Problem Qualifiers (1) Schizoaffective disorder: Qualified Codes: F25.8 - Other schizoaffective disorders Carl Ruiz MD August 23, 2017 09:52
[2017-08-23] MEDS ORDERED: PILL SPLITTER OTHER PRN (10:00)
[2017-08-23 10:28] VITALS: BP 130/58; PULSE 77; RESP 16; TEMP 98.8; O2SAT 99
[2017-08-23 12:34] VITALS: BP 101/59; PULSE 86; RESP 18; TEMP 98.4
[2017-08-23] MEDS: buPROPion HCL 150 MG SUSTAINED RELEASE TAB PO SCH (13:13)
[2017-08-23] MEDS: risperiDONE 1 MG TAB PO SCH ×2 (13:13→21:33)
[2017-08-23] MEDS: BENZTROPINE MESYLATE 1 MG TAB PO SCH ×2 (13:13→21:33)
[2017-08-23] MEDS: ACETAMINOPHEN 325 MG TAB PO PRN (21:35)
[2017-08-24] MEDS: ACETAMINOPHEN 325 MG TAB PO PRN (04:57)
[2017-08-24 06:40] VITALS: BP 106/58; PULSE 87; RESP 16; TEMP 98; O2SAT 98
[2017-08-24 07:14] LABS: ALBUMIN 3.2 GM/DL (3.4-5.0); ALKALINE PHOSPHATASE 108 U/L (45-117); ALT (GPT) 16 U/L (10-53); AST (GOT) 12 U/L (15-37); BICARBONATE 29.5 MEQ/L (21.0-32.0); BLOOD UREA NITROGEN 21 MG/DL (7-18); CHLORIDE 103 MEQ/L (98-107); CHOLESTEROL 156 MG/DL (120-200); CHOLESTEROL/ HDL RATIO 4.12 RATIO; CREATININE 0.82 MG/DL (0.50-1.00); GLOMERULAR FILTRATION RATE 71 ML/MIN (>89); GLUCOSE,RANDOM 76 MG/DL (74-106); HDL CHOLESTEROL 37.8 MG/DL (40.0-60.0); LDL CHOLESTEROL 99 MG/DL (0-99); SODIUM (NA) 141 MEQ/L (136-145); TOTAL BILIRUBIN ADULT 0.2 MG/DL (0.2-1.0); TOTAL PROTEIN 6.4 GM/DL (6.4-8.2); TRIGLYCERIDES 94 MG/DL (42-150)
[2017-08-24] MEDS: buPROPion HCL 150 MG SUSTAINED RELEASE TAB PO SCH (09:24)
[2017-08-24] MEDS: risperiDONE 1 MG TAB PO SCH ×2 (09:24→20:51)
[2017-08-24] MEDS: BENZTROPINE MESYLATE 1 MG TAB PO SCH ×2 (09:24→20:51)
[2017-08-24] MEDS ORDERED: diphenhydrAMINE HCL 50 MG CAP PO PRN (12:15)
[2017-08-24] MEDS ORDERED: hydrOXYzine HCL 50 MG TAB PO PRN (12:15)
--- NOTE | 2017-08-24 12:16 | HHI.PYPN ---
Subjective Chief Complaint: Psychosis/suicidal ideation Remarks This patient initially admitted by Dr. Carl Ruiz his H&P reviewed and agreed with. I have completed the initial template admission psychiatric orders , and did the med reconciliation review. Dr. Ruiz is done first opinion petition supporting Schwarz act I concur with cindy. Patient meets criteria for involuntary psychiatric hospitalization under the Schwarz act thus I will cosign second opinion petition supporting Schwarz act patient seen by me on the unit with nurse lucila. Patient is confused and disorganized vigilant and psychotic. Of interest patient stated multiple visits to the ED this past 1-2 months. Patient was seen on 08/21/[address] Ruiz under visit [phone] date times she initially stated she was suicidal and stated all she wished was a refill on her medications. Dr. Ruiz gave her a 7 day supply of her medication and she left what appears to be fairly good spirits. It appears patient has been homeless since that period of time I question her compliance with medication. In any event at this time patient does meet criteria for further stay him a involuntary basis under the Schwarz act. We will continue her on her Resporal and her Cogentin. Dr. Ruiz is added Wellbutrin will continue that also. Hopefully to be a fairly short stay and help this lady find placement. Of interest patient stated that she is from [place] that she is up there in April of this year. At that she would possibly like to return to that location Review of Systems Except as stated in HPI: all other systems reviewed are Neg Mental Status Examination Appearance: Disheveled Consciousness: Alert Orientation: Person, Place (At least) Motor Activity: Other (No motor abnormalities noted) Speech: Unremarkable Language: Other (Rambling) Fund of Knowledge: Inadequate Attention and Concentration: Easily Distracted Memory: Impaired (Suspect some degree of confabulation) Mood: Other (Dysphoric) Affect: Other (Restricted) Thought Process & Associations: Disorganized Thought Content: Bizarre thinking, Delusional Hallucination Type: None Delusion Type: Paranoid Suicidal Ideation: Yes Suicidal Plan: No Suicidal Intention: No Homicidal Ideation: No Homicidal Plan: No Homicidal Intention: No Insight: Poor Judgment: Poor Results Labs Test 08/24/17 05:43 Blood Urea Nitrogen 21 MG/DL Creatinine 0.82 MG/DL Random Glucose 76 MG/DL Total Protein 6.4 GM/DL Albumin 3.2 GM/DL Calcium Level 9.0 MG/DL Alkaline Phosphatase 108 U/L Aspartate Amino Transf (AST/SGOT) 12 U/L Alanine Aminotransferase (ALT/SGPT) 16 U/L Total Bilirubin 0.2 MG/DL Sodium Level 141 MEQ/L Potassium Level 4.2 MEQ/L Chloride Level 103 MEQ/L Carbon Dioxide Level 29.5 MEQ/L Anion Gap 9 MEQ/L Estimat Glomerular Filtration Rate 71 ML/MIN Triglycerides Level 94 MG/DL Cholesterol Level 156 MG/DL LDL Cholesterol 99 MG/DL HDL Cholesterol 37.8 MG/DL Cholesterol/HDL Ratio 4.12 RATIO Vitals/IOs Vital Signs Date Time Temp Pulse Resp B/P (MAP) Pulse Ox O2 Delivery O2 Flow Rate FiO2 08/24/17 06:40 98.0 87 16 106/58 (74) 98 08/23/17 10:28 Room Air Assessment & Plan Problem List: (1) Schizoaffective disorder ICD Codes: F25.9 - Schizoaffective disorder, unspecified Assessment & Plan Estimated LOS: days patient continues quite psychotic and delusional, we will have hospitalist consult with us, I have done second opinion petition supporting Schwarz act. We will continue medications per the med reconciliation. We will need to discuss with patient placement issues Justification for Cont. Inpt. At this time patient would decompensate the place to the lower level of care Discharge Planning Needs to be discussed with patient whether local placement or perhaps relocation to the [place] area Request HC Surrog/Guard Advoc?: No Problem Qualifiers (1) Schizoaffective disorder: Qualified Codes: F25.8 - Other schizoaffective disorders Mesfin Quintero MD August 24, 2017 12:16
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
[2017-08-24 15:58] LABS: HEMOGLOBIN A1C 5.6 % (4.3-6.0)
[2017-08-24 17:38] VITALS: BP 124/53; PULSE 75; RESP 17; TEMP 97.7; O2SAT 97
[2017-08-24 17:39] VITALS: BP 124/53; PULSE 82; RESP 17; TEMP 97.7; O2SAT 97
[2017-08-25] MEDS: ACETAMINOPHEN 325 MG TAB PO PRN (03:29)
[2017-08-25] MEDS: hydrOXYzine HCL 50 MG TAB PO PRN (04:09)
[2017-08-25 05:23] VITALS: BP 118/70; PULSE 65; RESP 16; TEMP 97.8
[2017-08-25] MEDS: buPROPion HCL 150 MG SUSTAINED RELEASE TAB PO SCH (09:20)
[2017-08-25] MEDS: risperiDONE 1 MG TAB PO SCH ×2 (09:21→21:29)
[2017-08-25] MEDS: BENZTROPINE MESYLATE 1 MG TAB PO SCH ×2 (09:21→21:29)
--- NOTE | 2017-08-25 11:48 | HHI.PR ---
Subjective Remarks wants to go home. no compliants. Objective Vitals Vital Signs Date Time Temp Pulse Resp B/P (MAP) Pulse Ox O2 Delivery O2 Flow Rate FiO2 08/25/17 05:23 97.8 65 16 118/70 (86) 08/24/17 17:39 97.7 82 17 124/53 (76) 97 08/24/17 17:38 97.7 75 17 124/53 (76) 97 Result Diagram: 08/22/17222908/24/17542 Other Results Item Value Date Time Hemoglobin A1c 5.6 % 08/24/1743 LDL Cholesterol 99 MG/DL 08/24/17542 Objective Remarks GENERAL: This is a well-nourished, well-developed patient, in no apparent distress. CARDIOVASCULAR: Regular rate and rhythm RESPIRATORY: Clear to auscultation. Breath sounds equal bilaterally. No wheezes , rales, or rhonchi. A/P Problem List: (1) Schizoaffective disorder ICD Code: F25.9 - Schizoaffective disorder, unspecified (2) Suicidal ideation ICD Code: R45.851 - Suicidal ideations Status: Acute Assessment and Plan Patient is a 62-year-old female with known history of bipolar disorder, anxiety , depression who initially came into the hospital under Schwarz act by the police for psychiatric evaluation. Per review of records patient had suicidal thoughts of overdosing on her medications. She is now admitted to inpatient psychiatry unit for further evaluation. Bipolar, anxiety, depression, suicidal ideation - currently on wellbutrin and risperdal -Managed by psychiatry team Patient reports history of diabetes hemoglobin A1c 5.6, well controlled Patient reports history of hyperlipidemia -Lipid profile within normal Current day smoker, tobacco abuse -Nicotine patch. Counseled for smoking cessation Reports history of asthma -Not in exacerbation with history of smoking. Nicotine patch for now. DVT prophylaxis ambulatory no acute medical issues, will sign off. please reconsult as needed. Thank you Problem Qualifiers (1) Schizoaffective disorder: Qualified Codes: F25.8 - Other schizoaffective disorders Roxana Dao MD Aug 25, 2017 11:48
--- NOTE | 2017-08-25 13:43 | HHI.PYPN ---
Subjective Chief Complaint: Psychosis/suicidal ideation Remarks Patient seen and khalil with nurse hipolito, chart reviewed, patient compliant medication. Patient continues to be intrusive wanted to be discharged when she is markedly disorganized appears to be responding to internal stimuli. Stating she has her money today now she can go get a motel room for 2 weeks use up all her money and then be homeless after that. For now we will increase Resporal to 2 mg twice daily Review of Systems Except as stated in HPI: all other systems reviewed are Neg Mental Status Examination Appearance: Disheveled Consciousness: Alert Orientation: Person, Place (At least) Motor Activity: Other (No motor abnormalities noted) Speech: Unremarkable Language: Other (Rambling) Fund of Knowledge: Inadequate Attention and Concentration: Easily Distracted Memory: Impaired (Suspect some degree of confabulation) Mood: Other (Dysphoric) Affect: Other (Restricted) Thought Process & Associations: Disorganized Thought Content: Bizarre thinking, Delusional Hallucination Type: None Delusion Type: Paranoid Suicidal Ideation: Yes Suicidal Plan: No Suicidal Intention: No Homicidal Ideation: No Homicidal Plan: No Homicidal Intention: No Insight: Poor Judgment: Poor Results Vitals/IOs Vital Signs Date Time Temp Pulse Resp B/P (MAP) Pulse Ox O2 Delivery O2 Flow Rate FiO2 08/25/17 05:23 97.8 65 16 118/70 (86) 08/24/17 17:39 97 08/23/17 10:28 Room Air Assessment & Plan Problem List: (1) Schizoaffective disorder ICD Codes: F25.9 - Schizoaffective disorder, unspecified Assessment & Plan Estimated LOS: days patient continues psychotic contents intrusive and somewhat delusional we will increase Risperdal to 2 mg twice daily Justification for Cont. Inpt. At this time patient would decompensate a place to a lower level of care Discharge Planning To be determined Request HC Surrog/Guard Advoc?: No Problem Qualifiers (1) Schizoaffective disorder: Qualified Codes: F25.8 - Other schizoaffective disorders Mesfin Quintero MD Aug 25, 2017 13:43
[2017-08-25 16:52] VITALS: BP 108/42; PULSE 90; RESP 16; TEMP 97.8
[2017-08-25] MEDS: diphenhydrAMINE HCL 50 MG CAP PO PRN (21:30)
[2017-08-26] MEDS: ACETAMINOPHEN 325 MG TAB PO PRN ×2 (02:01→06:25)
[2017-08-26 06:00] VITALS: BP 114/55; PULSE 75; RESP 16; TEMP 98.1; O2SAT 96
[2017-08-26] MEDS: buPROPion HCL 150 MG SUSTAINED RELEASE TAB PO SCH (09:00)
[2017-08-26] MEDS: risperiDONE 1 MG TAB PO SCH ×2 (09:00→20:10)
[2017-08-26] MEDS: BENZTROPINE MESYLATE 1 MG TAB PO SCH ×2 (09:00→20:10)
--- NOTE | 2017-08-26 14:25 | HHI.PYPN ---
Subjective Chief Complaint: Psychosis/suicidal ideation Remarks Patient was seen and case discussed with nursing. Patient is pleasant and cooperative with exam. She is tangential and has poor insight. He is compliant with her medications. Likely responding to internal stimuli but denies any auditory hallucinations. Eating and sleeping well Mental Status Examination Appearance: Disheveled Consciousness: Alert Orientation: Person, Place (At least) Motor Activity: Other (No motor abnormalities noted) Speech: Unremarkable Language: Other (Rambling) Fund of Knowledge: Inadequate Attention and Concentration: Easily Distracted Memory: Impaired (Suspect some degree of confabulation) Mood: Other (Dysphoric) Affect: Other (Restricted) Thought Process & Associations: Tangential Thought Content: Bizarre thinking, Delusional Hallucination Type: None Delusion Type: Paranoid Suicidal Ideation: No Suicidal Plan: No Suicidal Intention: No Homicidal Ideation: No Homicidal Plan: No Homicidal Intention: No Insight: Poor Judgment: Poor Results Vitals/IOs Vital Signs Date Time Temp Pulse Resp B/P (MAP) Pulse Ox O2 Delivery O2 Flow Rate FiO2 08/26/17 06:00 98.1 75 16 114/55 (74) 96 08/23/17 10:28 Room Air Assessment & Plan Problem List: (1) Schizoaffective disorder ICD Codes: F25.9 - Schizoaffective disorder, unspecified Assessment & Plan Patient would decompensate in a less restrictive setting Justification for Cont. Inpt. Continue current treatment plan Request HC Surrog/Guard Advoc?: No Problem Qualifiers (1) Schizoaffective disorder: Qualified Codes: F25.8 - Other schizoaffective disorders Calixto Chou DO Aug 26, 2017 14:25
[2017-08-26 18:07] VITALS: BP 127/83; PULSE 85; RESP 16; TEMP 98.1; O2SAT 98
[2017-08-26] MEDS: hydrOXYzine HCL 50 MG TAB PO PRN (20:12)
[2017-08-27] MEDS: ACETAMINOPHEN 325 MG TAB PO PRN ×2 (01:31→15:47)
[2017-08-27] MEDS: diphenhydrAMINE HCL 50 MG CAP PO PRN ×2 (01:31→20:47)
[2017-08-27] MEDS: ALUMINUM/MAGNESIUM/SIMETH 30 ML CUP PO PRN (04:28)
[2017-08-27 05:43] VITALS: BP 114/55; PULSE 64; RESP 16; TEMP 97.6; O2SAT 97
[2017-08-27] MEDS: BENZTROPINE MESYLATE 1 MG TAB PO SCH ×2 (07:59→20:47)
[2017-08-27] MEDS: buPROPion HCL 150 MG SUSTAINED RELEASE TAB PO SCH (07:59)
[2017-08-27] MEDS: risperiDONE 1 MG TAB PO SCH ×2 (07:59→20:46)
--- NOTE | 2017-08-27 09:27 | HHI.PYPN ---
Subjective Chief Complaint: Psychosis/suicidal ideation Remarks Patient was seen and case discussed with nursing. Patient remains disheveled and is quite pressured today. Affect is angry after finding out she will not be discharged today. Patient begins yelling loudly. Insight is poor concerning her mental health. Largely seclusive to self Mental Status Examination Appearance: Disheveled Consciousness: Alert Orientation: Person, Place (At least) Motor Activity: Other (No motor abnormalities noted) Speech: Pressured Language: Other (Rambling) Fund of Knowledge: Inadequate Attention and Concentration: Easily Distracted Memory: Impaired (Suspect some degree of confabulation) Mood: Angry Affect: Other (Restricted) Thought Process & Associations: Tangential Thought Content: Bizarre thinking, Delusional Hallucination Type: None Delusion Type: Paranoid Suicidal Ideation: No Suicidal Plan: No Suicidal Intention: No Homicidal Ideation: No Homicidal Plan: No Homicidal Intention: No Insight: Poor Judgment: Poor Results Vitals/IOs Vital Signs Date Time Temp Pulse Resp B/P (MAP) Pulse Ox O2 Delivery O2 Flow Rate FiO2 08/27/17 05:43 97.6 64 16 114/55 (74) 97 08/23/17 10:28 Room Air Assessment & Plan Problem List: (1) Schizoaffective disorder ICD Codes: F25.9 - Schizoaffective disorder, unspecified Assessment & Plan Continue current treatment plan Justification for Cont. Inpt. Patient would decompensate in a less restrictive setting Request HC Surrog/Guard Advoc?: No Problem Qualifiers (1) Schizoaffective disorder: Qualified Codes: F25.8 - Other schizoaffective disorders Calixto Chou DO Aug 27, 2017 09:27
[2017-08-27 16:45] VITALS: BP 102/51; PULSE 84; RESP 16; TEMP 97.5; O2SAT 97
[2017-08-27] MEDS: hydrOXYzine HCL 50 MG TAB PO PRN (20:47)
[2017-08-28 06:13] VITALS: BP 124/60; PULSE 82; RESP 18; TEMP 97.5; O2SAT 95
[2017-08-28] MEDS: buPROPion HCL 150 MG SUSTAINED RELEASE TAB PO SCH (08:30)
[2017-08-28] MEDS: BENZTROPINE MESYLATE 1 MG TAB PO SCH ×2 (08:30→21:11)
[2017-08-28] MEDS: risperiDONE 1 MG TAB PO SCH ×2 (08:30→21:10)
[2017-08-28] MEDS: ALUMINUM/MAGNESIUM/SIMETH 30 ML CUP PO PRN (08:33)
--- NOTE | 2017-08-28 11:46 | HHI.PYPN ---
Subjective Chief Complaint: Psychosis/suicidal ideation Remarks Patient seen in her room with nurse Vandana, and medical student Dayami, chart reviewed, patient complaint medications. Patient continues disorganized. Requesting discharge. Though I feel she remained psychotic with a very manic overlay. She is given confusing stories about where she would be able to stay when she leaves here ranging from [place] to [place] to [facility]. When told she would not be discharged she then screamed that she had a court date for charges of urinating in public. Then she continued screaming that she fired me as a psychiatrist that she does not like me, this going back to my care of her and Lionel Mei acted number of years ago. The stomach feel patient continues quite psychotic and delusional. We will increase the Resporal to 3 mg twice daily Review of Systems Except as stated in HPI: all other systems reviewed are Neg Mental Status Examination Appearance: Disheveled Consciousness: Alert Orientation: Person, Place (At least) Motor Activity: Other (No motor abnormalities noted) Speech: Pressured Language: Other (Rambling) Fund of Knowledge: Inadequate Attention and Concentration: Easily Distracted Memory: Impaired (Suspect some degree of confabulation) Mood: Angry Affect: Other (Restricted) Thought Process & Associations: Tangential Thought Content: Bizarre thinking, Delusional Hallucination Type: None Delusion Type: Paranoid Suicidal Ideation: No Suicidal Plan: No Suicidal Intention: No Homicidal Ideation: No Homicidal Plan: No Homicidal Intention: No Insight: Poor Judgment: Poor Results Vitals/IOs Vital Signs Date Time Temp Pulse Resp B/P (MAP) Pulse Ox O2 Delivery O2 Flow Rate FiO2 08/28/17 06:13 97.5 82 18 124/60 (81) 95 Assessment & Plan Problem List: (1) Schizoaffective disorder ICD Codes: F25.9 - Schizoaffective disorder, unspecified Assessment & Plan Estimated LOS: days patient continues psychotic with manic overlay, quite delusional with no insight. She medication adjustment above Justification for Cont. Inpt. At this time patient would decompensate a place to the lower level of care. Upon further assessment patient behavior I feel her diagnosis would better be served as schizoaffective disorder bipolar type Discharge Planning To be determined Request HC Surrog/Guard Advoc?: No Problem Qualifiers (1) Schizoaffective disorder: Qualified Codes: F25.0 - Schizoaffective disorder, bipolar type Mesfin Quintero MD Aug 28, 2017 11:46
[2017-08-28 18:15] VITALS: BP 130/72; PULSE 80; RESP 18; TEMP 97.8; O2SAT 96
[2017-08-28] MEDS: diphenhydrAMINE HCL 50 MG CAP PO PRN (21:23)
[2017-08-29 06:01] VITALS: BP 99/53; PULSE 62; RESP 17; TEMP 97.6; O2SAT 95
--- NOTE | 2017-08-29 08:43 | PD.TTN ---
Patient Problems 1. Discharge planning 2. Medication compliance 3. Knowledge deficit 4. Lack of coping skills Progress Toward Goals Provider Present: Dr. Skyler Quintero Provider Input: 08/28/17 Dr. Quintero had his treatment team meeting to discuss patient's treatment plan, medication, and discharge plan. Patient presents disorganized, psychotic, delusional Nurse(s) Input: 08/28/17 Patient's nurse reports patient is pleasant, seen on unit, cooperative Psychiatric Counselors Present: Chantale Yap [facility] Psych Therapist Input: 08/28/17 Patient presents pleasant, cooperative, medication compliant, discharge forcused Group Spec/RT/OT/LI Present: LOUISA Chew Group Spec/RT/OT/LI Input: 08/28/17 Patient needs prompting, poor participation Chantale Yap [facility] Aug 29, 2017 08:42
[2017-08-29] MEDS: BENZTROPINE MESYLATE 1 MG TAB PO SCH ×2 (09:00→21:14)
[2017-08-29] MEDS: risperiDONE 1 MG TAB PO SCH ×2 (09:00→21:13)
[2017-08-29] MEDS: buPROPion HCL 150 MG SUSTAINED RELEASE TAB PO SCH (09:00)
--- NOTE | 2017-08-29 14:22 | HHI.PYPN ---
Subjective Chief Complaint: Psychosis/suicidal ideation Remarks Patient seen in day room with floor staff, and medical student, chart reviewed, patient complaint medications. Patient continues intrusive with rapid pressured speech she is markedly disorganized, she continues to demand discharge stating she has a place to stay but when asked about the details it appears there are various homeless shelters. While she denies voices she appears to be responding to internal stimuli. Until she needs to stay she becomes quite labile and angry tearful and upset. At this time patient continues to meet criteria for involuntary psychiatric hospitalization. We will offer her invega sustena to 34 mg IM today and q. 28 days. Review of Systems Except as stated in HPI: all other systems reviewed are Neg Mental Status Examination Appearance: Disheveled Consciousness: Alert Orientation: Person, Place (At least) Motor Activity: Other (No motor abnormalities noted) Speech: Pressured Language: Other (Rambling) Fund of Knowledge: Inadequate Attention and Concentration: Easily Distracted Memory: Impaired (Suspect some degree of confabulation) Mood: Angry Affect: Other (Restricted) Thought Process & Associations: Tangential Thought Content: Bizarre thinking, Delusional Hallucination Type: None Delusion Type: Paranoid Suicidal Ideation: No Suicidal Plan: No Suicidal Intention: No Homicidal Ideation: No Homicidal Plan: No Homicidal Intention: No Insight: Poor Judgment: Poor Results Vitals/IOs Vital Signs Date Time Temp Pulse Resp B/P (MAP) Pulse Ox O2 Delivery O2 Flow Rate FiO2 08/29/17 06:01 97.6 62 17 99/53 (68) 95 Intake and Output 08/29/17 08/29/17 08/30/17 08:00 16:00 00:00 Intake Total 360 ml Balance 360 ml Assessment & Plan Problem List: (1) Schizoaffective disorder ICD Codes: F25.9 - Schizoaffective disorder, unspecified Assessment & Plan Estimated LOS: days patient continues delusional psychotic and paranoid, see medication adjustment above Justification for Cont. Inpt. At this time patient would decompensate a place to the lower level of care Discharge Planning To be determined Request HC Surrog/Guard Advoc?: No Problem Qualifiers (1) Schizoaffective disorder: Qualified Codes: F25.0 - Schizoaffective disorder, bipolar type Mesfin Quintero MD Aug 29, 2017 14:22
[2017-08-29] MEDS ORDERED: PALIPERIDONE PALMITATE 234 MG/1.5 ML SYRINGE IM SCH (15:00)
[2017-08-29 17:51] VITALS: BP 101/68; PULSE 68; RESP 18; TEMP 98.6; O2SAT 98
[2017-08-30 05:48] VITALS: BP 110/56; PULSE 65; RESP 16; TEMP 98; O2SAT 100
[2017-08-30] MEDS ORDERED: BENZ0.5T PO (09:14)
[2017-08-30] MEDS ORDERED: RISP3 PO (09:14)
[2017-08-30] MEDS ORDERED: BUPR150CR PO (09:14)
[2017-08-30] MEDS ORDERED: PALI234P IM (09:14)
--- NOTE | 2017-08-30 09:24 | HHI.DS ---
Psychiatry Discharge Summary Inpatient Psychiatric care?: Yes Advance Directive: No Reason Not Provided: Due to Patient Condition Mental Health AdvanceDirective: No Health Care Proxy: No Admission Admission Date August 23, 2017 at 09:40 Admission Diagnosis: (1) Schizoaffective disorder ICD Code: F25.9 - Schizoaffective disorder, unspecified Brief History Ms. Toribio is a 62-year-old female with a history of schizoaffective disorder who presents under a Schwarz act from [facility] Department alleging that the patient said that she was having thoughts of overdosing on her psychotropic medications to kill herself. Patient is very well-known to the psychiatric service here from multiple previous ED visits and admissions. I saw the patient in consultation in the ED 2 days ago. Electronic medical record reviewed. Patient seen and examined. Chart reviewed. Case discussed with nursing staff. On my examination today, the patient presents as disheveled and disorganized. She is paranoid. She asks "what do you think they are drugging me with?" She endorses suicidal ideation at one moment and then denies it a short time later and requests discharge from the ED. She denies audiovisual hallucinations but appears internally stimulated. No other delusional material elicited. Affect is restricted and dysphoric. She denies any homicidal ideation. No hypomanic or manic symptoms. Remainder of the psychiatric ROS is negative. No acute physical complaints. Past psychiatric, family, chemical dependency and social history for this patient have been amply documented elsewhere, for example see my recent consultation. Tobacco Use In Past 30 Days: 5 or More Cigarettes/Day Alcohol Use: Monthly or Less Hospital Course Patient's hospital course was uneventful, she showed compliance of the medication from day of admission. With remains some mild manic flavor to her her speech continues somewhat rapid and pressured though it is softened. Her speech is more goal oriented and appropriate processing has improved. She continues to deny suicidality homicidality voice or visions. At this time patient no longer meets criteria for involuntary psychiatric hospitalization she is compliant medications is willing to be compliant with follow-up through Lionel act thus patient will be discharged today. Patient also did receive her invega sustena injection yesterday without problems Results Blood Pressure 110 / 56 Vital Signs Date Time Temp Pulse Resp B/P (MAP) Pulse Ox O2 Delivery O2 Flow Rate FiO2 08/30/17 05:48 98.0 65 16 110/56 (74) 100 Laboratory Results Test 08/24/17 05:43 Cholesterol Level 156 MG/DL (120-200) HDL Cholesterol 37.8 MG/DL (40.0-60.0) Hemoglobin A1c 5.6 % (4.3-6.0) LDL Cholesterol 99 MG/DL (0-99) Triglycerides Level 94 MG/DL (42-150) Summary of Procedures None done Pending results at discharge: No Medications # of Antipsychotic meds at D/C: 1 Approp Antipsych med options 1 - Minimum of three failed multiple trials of monotherapy. 2 - Documented plan to taper to monotherapy due to previous use of multiple meds OR cross-taper in progress at D/C. 3 - Documentation of augmentation of Clozapine. 4 - Justification other than those listed in allowable values 1-3, document here : Discharge Discharge Date: Aug 30, 2017 Discharge Diagnosis: (1) Schizoaffective disorder Diagnosis: Principal ICD Code: F25.9 - Schizoaffective disorder, unspecified Pt Condition on Discharge: Stable Discharge Disposition: Discharge Home Discharge Instructions Diet Instructions: As Tolerated, No Restrictions Activities you can perform: Regular-No Restrictions Scheduled Appointment: Lionel James Discharge Time > 30 minutes Mental Status Examination Appearance: Disheveled Consciousness: Alert Orientation: Person, Place (At least) Motor Activity: Other (No motor abnormalities noted) Speech: Pressured Language: Other (Rambling) Fund of Knowledge: Inadequate Attention and Concentration: Easily Distracted Memory: Impaired (Suspect some degree of confabulation) Mood: Angry Affect: Other (Restricted) Thought Process & Associations: Tangential Thought Content: Bizarre thinking, Delusional Hallucination Type: None Delusion Type: Paranoid Suicidal Ideation: No Suicidal Plan: No Suicidal Intention: No Homicidal Ideation: No Homicidal Plan: No Homicidal Intention: No Insight: Poor Judgment: Poor Discharge/Advance Care Plan Health Problems: (1) Schizoaffective disorder Goals to promote your health * To prevent worsening of your condition and complications * To maintain your health at the optimal level Directions to meet your goals Take your medications as prescribed Follow your dietary instruction Follow activity as directed Keep your appointments as scheduled Take your immunizations and boosters as scheduled If your symptoms worsen call your PCP, if no PCP go to Urgent Care Center or Emergency Room For 17/10 questions related to your inpatient stay or results of tests pending at discharge, please contact Dr. Mesfin Quintero at Smoking is Dangerous to Your Health. Avoid second hand smoking Problem Qualifiers (1) Schizoaffective disorder: Qualified Codes: F25.0 - Schizoaffective disorder, bipolar type Mesfin Quintero MD Aug 30, 2017 09:23
[2017-08-30] MEDS: buPROPion HCL 150 MG SUSTAINED RELEASE TAB PO SCH (09:27)
[2017-08-30] MEDS: BENZTROPINE MESYLATE 1 MG TAB PO SCH (09:27)
[2017-08-30] MEDS: risperiDONE 1 MG TAB PO SCH (09:28)
--- NOTE | 2017-08-30 14:01 | PD.TTN ---
Patient Problems 1. Discharge planning 2. Medication compliance 3. Knowledge deficit 4. Lack of coping skills Progress Toward Goals Provider Present: Dr. Skyler Quintero Provider Input: 08/28/17 Dr. Quintero had his treatment team meeting to discuss patient's treatment plan, medication, and discharge plan. Patient presents disorganized, psychotic, delusional 08/30/17 Patient is doing well, Will discharge today. Nurse(s) Input: 08/28/17 Patient's nurse reports patient is pleasant, seen on unit, cooperative 08/30/17 Patient's nurse reports patient is doing well. Medication compliant Psychiatric Counselors Present: Chantale Yap [facility] Psych Therapist Input: 08/28/17 Patient presents pleasant, cooperative, medication compliant, discharge forcused 08/30/17 Patient was pleasant, cooperative, affect appropriate. Patient denies suicidal and homicidal ideation. Patient 's speech was clear and organized. Group Spec/RT/OT/LI Present: LOUISA Chew Group Spec/RT/OT/LI Input: 08/28/17 Patient needs prompting, poor participation Patient attends groups appropriately. Chantale Yap [facility] Aug 30, 2017 14:01
== END 2017-08-30 14:15 | disposition home or self-care (01) | DRG 885 ==
LOC: NEPJ 22:06 → NEDA 08-23 09:40 → H260 08-23 11:20
PROVIDERS: ADMIT Psychiatry & Neurology Psychiatry; ATTEND Psychiatry & Neurology Psychiatry
DX: F25.0 Schizoaffective disorder, bipolar type (principal); R45.851 Suicidal ideations; Z59.0 Homelessness; J45.909 Unspecified asthma, uncomplicated; I25.10 Atherosclerotic heart disease of native coronary artery without angina pectoris; H91.93 Unspecified hearing loss, bilateral; M19.90 Unspecified osteoarthritis, unspecified site; F17.210 Nicotine dependence, cigarettes, uncomplicated; Z88.6 Allergy status to analgesic agent; Z95.5 Presence of coronary angioplasty implant and graft
CPT/HCPCS: 80053; 80061; 80307; 83036; 85025; 99285; J2426; Q0163